=== PATIENT | male | born 1980 | race Caucasian/White ===

== ENCOUNTER 2016-03-29 10:23 | Inpatient (IN) | payer MEDICAID ==
[~2016-03-29] VITALS: Ht 185.4 cm; Wt 79.0 kg
[~2016-03-29 10:23] MED LIST: /IPRAINH INH; ADV500INH INH; ALBU17IN INH; BENA25TA4 PO; BUSP10TA PO; COLA50CA3 PO; LEVO750T PO; MUCI600T34 PO; OMEP40CA2 PO; PEPC10TA PO; PRED10TA2 PO; TRAZ100T4 PO; VENTAER IN; XANA0.5T PO; ZOLO100T PO; ZOLO50TA PO
[2016-03-29 11:50] LABS: BASO % 0.1 % (0.0-1.0); EOS % 0.4 % (0.0-3.0); LARGE UNSTAINED CELL # 0.2 K/mm3 (0.0-0.4); LARGE UNSTAINED CELL % 1.1 % (0.0-4.0); LYMPH # 1.2 K/mm3 (1.5-4.5); LYMPH % 8.7 % (24.0-44.0); MEAN CORPUSCULAR HEMOGLOBIN 30.1 pg (27.0-33.0); MEAN CORPUSCULAR HGB CONC 34.4 g/dl (32.0-36.5); MEAN CORPUSCULAR VOLUME 87.5 fl (80.0-96.0); MONO # 0.6 K/mm3 (0.0-0.8); MONO % 4.1 % (0.0-5.0); NEUTROPHILS % 85.7 % (36.0-66.0); PLATELET COUNT, AUTOMATED 279 k/mm3 (150-450); RED CELL DISTRIBUTION WIDTH 12.8 % (11.5-14.5)
[2016-03-29 12:01] LABS: ANION GAP 8 MEQ/L (8-16); BLOOD UREA NITROGEN 15 MG/DL (7-18); CARBON DIOXIDE LEVEL 27 MEQ/L (21-32); CHLORIDE LEVEL 106 MEQ/L (98-107); CREATININE FOR GFR 1.31 MG/DL (0.70-1.30); GLOMERULAR FILTRATION RATE > 60.0 (>60); GLUCOSE, FASTING 110 MG/DL (70-105); SODIUM LEVEL 141 MEQ/L (136-145)
[2016-03-29] MEDS ORDERED: MAGNESIUM SULFATE 1 GM/100 ML D5W BAG (10MG/ML) (J3475) As Ordered ONE (12:15)
[2016-03-29] MEDS ORDERED: ISOVUE-370 76% 100ML VIAL (Q9967) As Ordered ONE (12:15)
[2016-03-29] MEDS ORDERED: IPRATROPIUM 0.5MG/ALBUTEROL 2.5MG INH SOL UD 3ML (DUONEB)(J7620) As Ordered ONE ×2 (12:41→12:57)
--- NOTE | 2016-03-29 13:11 | REP ---
CT ANGIO CHEST: HISTORY: Shortness of breath. CONTRAST: Isovue 370, 75 mL. There are no filling defects in the main , right and left pulmonary arteries or their branches. The lungs are clear. There is no pleural effusion. There is no hilar or mediastinal mass. The heart is normal in size. IMPRESSION: There is no pulmonary embolism. Signed by Michael Doshi MD 03/29/2016 01:14 P
[2016-03-29] MEDS ORDERED: DEXA4TA PO (14:33)
[2016-03-29] MEDS ORDERED: ALBU83IN INH (14:33)
[2016-03-29] MEDS ORDERED: ROBI30SU PO (14:33)
--- NOTE | 2016-03-29 15:19 | HPEPDOC ---
Medical History and Physical Date of Admission 03/29/16 History and Physical ATTENDING: Dr. Salmon PCP: NONE CC: SOB HPI: 35 yoM with a past medical history significant for asthma who states his breathing has been worsening for the past 6 weeks. He states he was not taking any medications because he did not have a primary care provider and he did not have insurance. He was seen at urgent care approximately 4 weeks ago and was treated with a one-week course of prednisone and amoxicillin. His symptoms subsequently did not improve. He was seen yesterday at [facility] and treated with oral dexamethasone. Today he was persistently short of breath therefore came to the emergency department for further evaluation. He states over the past 4-6 weeks he has been using albuterol 6-7 times per day for wheezing, coughing, shortness of breath. Today his chest feels tight. Cough is nonproductive. He notices wheezing. He has not had any fevers or chills. No sputum production. Denies any weakness, fatigue, SCOTT, CP, palpitations, abdominal pain, N/V/D or changes in bowel or bladder habits. Upon presentation to the hospital the patient was found to have asthma exacerbation, thus the hospitalist team was consulted. PMHx: Asthma Depression Anxiety Tobacco use PSHX: Denies SOCHX: Resides in: [facility] Marital Status: Single Kids: None Employment: [employer] Tobacco use: One half pack per day for 9 years, states quit 2 weeks ago related to his breathing ETOH: States one time per month approximately 30 shots. Illicit Drugs: Denies Recent travel: Denies Advanced directives: Denies FAMHX: Mother: Alive, COPD Father: , 1984, self-inflicted GSW. Siblings: One brother, one sister Alive, well Children: None Unexpected deaths due to medical reasons: None. ROS: As noted in HPI, otherwise 11pt ROS of systems reviewed and unremarkable. PE: GEN: 35yoM, appears stated age. Well-nourished, well developed. No acute distress. Alert and oriented x 3. Pleasant, interactive. HEENT: Normocephalic, atraumatic. Pupils are equal, round, and reactive to light. Extraocular movements are intact. No nystagmus appreciated. Sclera are nonicteric. Conjunctiva without injection. Nose midline. Nasal turbinates without bogginess. EACs both patent BL. TMs both visualized and gonzales with good cone of light, no bulging or erythema. No facial asymmetry. Moist mucous membranes. Dentition fair. Pharynx pink and moist, no cobblestoning. Neck supple , trachea midline. No lymphadenopathy or thyromegaly appreciated. CHEST: Regular rate and rhythm, +S1, +S2 LUNGS: Decreased breath sounds noted bilaterally with diffuse inspiratory/ expiratory wheezes, no rales, or rhonchi. Patient is speaking in full sentences. No accessory muscle use. ABD: Round, soft, non-tender, non-distended. +Bowel sounds throughout. No rebound or guarding. No costovertebral angle tenderness. EXT: Pulses 2+ bilaterally dorsalis pedis and radial. No lower extremity edema appreciated. SKIN: Vaiva Vo, dry, warm. Capillary refill <2sec. No rashes. NEURO: Alert and oriented x 3. Cranial nerves III-XII are intact. No focal deficits appreciated. CTA: There are no filling defects in the main , right and left pulmonary arteries or their branches. The lungs are clear. There is no pleural effusion. There is no hilar or mediastinal mass. The heart is normal in size. There is no pulmonary embolism. EKG: Sinus rhythm, nonspecific ST-T abnormality, 78 bpm A&P: 35 yoM with a past medical history significant for asthma who states his breathing has been worsening for the past 6 weeks. He was seen at urgent care approximately 4 weeks ago and was treated with a one-week course of prednisone and amoxicillin. His symptoms subsequently did not improve. He was seen yesterday at [facility] and treated with oral dexamethasone. Today he was persistently short of breath therefore came to the emergency department for further evaluation. The patient will be admitted to [facility] for at least [address] Salmon's service. Patient is discussed with Dr. Mcneil. Asthma. Solu-Medrol 60 mg IV every 6 hours. DuoNeb every 4 hours and every 2 hours as needed. Supplemental oxygen as needed. History of depression/anxiety. Patient does not take any medications at this time. History of tobacco use. Patient states he quit 2 weeks ago. DVT prophylaxis. The patient is a full code Vital Signs 156/87 82 20 98.3 96 2 L nasal cannula Laboratory Data Labs 24H Laboratory Tests 2 03/29/16 11:32: Anion Gap 8, White Blood Count 14.0H, Red Blood Count 5.35, Hemoglobin 16.1, Hematocrit 46.9, Mean Corpuscular Volume 87.5, Mean Corpuscular Hemoglobin 30.1 , Mean Corpuscular Hemoglobin Concent 34.4, Red Cell Distribution Width 12.8, Platelet Count 279, Neutrophils (%) (Auto) 85.7H, Lymphocytes (%) (Auto) 8.7L, Monocytes (%) (Auto) 4.1, Eosinophils (%) (Auto) 0.4, Basophils (%) (Auto) 0.1, Neutrophils # (Auto) 12.0H, Lymphocytes # (Auto) 1.2L, Monocytes # (Auto) 0.6, Eosinophils # (Auto) 0.0, Basophils # (Auto) 0.0, Blood Urea Nitrogen 15, Creatinine 1.31H, Sodium Level 141, Potassium Level 4.0, Chloride Level 106, Carbon Dioxide Level 27, Calcium Level 9.0, Glomerular Filtration Rate > 60.0, Large Unclassified Cells # 0.2, Large Unclassified Cells % 1.1 CBC/BMP Laboratory Tests 03/29/16 11:32 Calcium Level 9.0, Red Blood Count 5.35, Mean Corpuscular Volume 87.5, Mean Corpuscular Hemoglobin 30.1, Mean Corpuscular Hemoglobin Concent 34.4, Red Cell Distribution Width 12.8, Neutrophils (%) (Auto) 85.7 H, Lymphocytes (%) (Auto) 8.7 L, Monocytes (%) (Auto) 4.1, Eosinophils (%) (Auto) 0.4, Basophils (%) (Auto ) 0.1, Neutrophils # (Auto) 12.0 H, Lymphocytes # (Auto) 1.2 L, Monocytes # ( Auto) 0.6, Eosinophils # (Auto) 0.0, Basophils # (Auto) 0.0 Home Medications Scheduled Dexamethasone (Dexamethasone) 4 Mg Tab 4 MG PO DAILY TOOK FOR 2 DOSES, LAST DOSE WAS 03/29/16 Scheduled PRN (Robitussin 12 Hour Cough) 30 Mg/5 Ml Echo 30 MG PO PRN PRN PRN COUGH Albuterol Sulfate (Ventolin Hfa) 200 Puff/8 Gm Aers 2 PUFF INH Q4HP PRN PRN SOB/ WHEEZING Albuterol Sulfate (Albuterol Sulfate) 2.5 Mg/3 Ml Nebu 2.5 MG INH QID PRN PRN SHORTNESS OF BREATH Allergies Coded Allergies: No Known Drug Allergy (Verified Allergy, 11/29/12) Cary Zheng Mar 29, 2016 15:19
--- NOTE | 2016-03-29 16:19 | EDDOCDS ---
Nurse's Notes [facility] Name: Sung Lilly Age: 35 yrs Sex: Male : 1980 Arrival Date: 03/29/2016 Time: 10:23 Bed 10 Private MD: Diagnosis: Asthma Presentation: 03/29 10:34 Presenting complaint: Patient states: He has had difficulty breathing for a month. ja5 Feels like he needs to gasp for air when breathing. Seen yesterday at [facility] for same. Adult Sepsis Screening: The patient does not have new or worsening altered mentation. Patient has a respiratory rate of greater than or equal to 22 (1 point). Systolic blood pressure is greater than 100. Patient has a qSOFA score of 1- Negative Sepsis Screen. Suicide/Homicide risk assessment- the patient denies having any suicidal and/or homicidal ideations and does not present with any other emotional, behavioral or mental health complaints. Status: Patient is not a teleservices representative or dependent. Transition of care: patient was not received from another setting of care. 10:34 Acuity: MAGDIEL Level 3 ja5 10:34 Method Of Arrival: Walkin/Carried/Asstd ja5 Triage Assessment: 10:42 General: Appears in no apparent distress, Behavior is appropriate for age, cooperative. ja5 Pain: Denies pain. Pt Declines HIV testing. The patient is triaged at the bedside. See Assessment in Nurses Notes section of ED record. Respiratory: Onset: The symptoms/episode began/occurred One month ago.. Historical: - Allergies: no known allergies; - Home Meds: 1. albuterol sulfate 90 mcg/actuation Inhl HFAA 2 puffs every 4 hours as needed (Last dose: 03/29/2016 09:00) 2. albuterol sulfate 2.5 mg /3 mL (0.083 %) Nebulizer nebu 3 mL 4 times per day as needed (Last dose: 03/29/2016 08:00) 3. dexamethasone 4 mg Oral tab 1 tab once daily prescribed one dose (Last dose: 03/29/2016 09:00) - PMHx: Asthma; Depression; Anxiety; - PSHx: none; - Social history: Smoking status: Patient states former smoker of tobacco. No barriers to communication noted. - Family history: Not pertinent. - : The pt / caregiver states he / she is not on anticoagulants. Home medication list is obtained from the patient. - Exposure Risk Screening:: None identified. Screenin:47 Screening information is obtained from the patient. Fall risk: No risks identified. ja5 Assistance ADL's: requires no assistance with activities of daily living. Abuse/DV Screen: The patient / caregiver reports he/she is: not in a situation that causes fear, pain or injury. Nutritional screening: On no prescribed diet. Advance Directives: Currently, there is no health care proxy. There is no active DNR order. There is no living will. There is no Power of Industrial Maintenance Tech. home support is adequate. Assessment: 10:45 General: Appears in no apparent distress, Behavior is appropriate for age, cooperative. ja5 Pain: Denies pain. Neurological: Level of Consciousness is awake, alert, Oriented to person, place, time. Cardiovascular: Capillary refill < 3 seconds Heart tones S1 S2. Respiratory: Airway is patent Respiratory effort is even, unlabored, Breath sounds with wheezes inspiratory expiratory bilaterally. Derm: Skin is intact, Skin is Skin is pink, warm & dry. 12:35 General: Patient just returned from CT, tolerated well, no needs at this time, patient ja5 still experiencing wheezing but is in no distress at this time. He states that he is much better than he was prior to his arrival. 13:33 General: Appears in no apparent distress, comfortable, Behavior is appropriate for age, ms18 cooperative, Magnesium infusion done at this time. PT in no acute distress. Family at bedside. . Respiratory: Airway is patent Respiratory effort is even, unlabored. Derm: Skin is pink, warm & dry. 14:17 General: Hospitalist in to assess/admit patient.. dwg 14:28 General: Patient resting in stretcher, no respiratory distress noted at this time, call ja5 light within reach, no needs at this time. 14:50 General: Appears in no apparent distress, Behavior is cooperative. Pain: Denies pain. dwg Neurological: Level of Consciousness is awake, alert, Oriented to person, place, time. Respiratory: Airway is patent Respiratory effort is even, unlabored, Respiratory pattern is regular, symmetrical. 14:53 General: Continues with inspiratory and expiratory wheezes bilaterally though states he dwg feels he is breathing easier since neb treatments.. Respiratory: Breath sounds with wheezes inspiratory expiratory bilaterally. 15:50 General: Appears in no apparent distress, comfortable, Behavior is appropriate for age, jmb cooperative. General: Patient sitting on stretcher texting on cell phone. NO voiced complaints at this time. . Neurological: Level of Consciousness is awake, alert, obeys commands, Oriented to person, place, time. Respiratory: Airway is patent Respiratory effort is even, unlabored, Respiratory pattern is regular, symmetrical. 16:08 General: Patient ready for transfer to [address] [place] [address].. b Vital Signs: 10:25 BP 147 / 95; Pulse 103; Resp 26; Temp 98.3(O); Pulse Ox 90% on R/A; Weight 72.57 kg; elp Height 6 ft. 1 in. (185.42 cm); 10:31 BP 141 / 94 (auto/); ja5 10:32 Pulse 104 MON; Pulse Ox 90% ; ja5 10:44 Pulse Ox 94% on 2 lpm NC; ja5 11:01 BP 134 / 83 (auto/); ja5 11:02 Pulse 86 MON; Pulse Ox 94% ; ja5 12:01 BP 146 / 76 (auto/); ja5 12:01 Pulse 84 MON; Pulse Ox 94% ; ja5 12:30 Pulse 82 MON; Pulse Ox 96% ; ja5 12:31 BP 156 / 87 (auto/); ja5 14:31 BP 156 / 83 (auto/); jmb 14:31 Pulse 100 MON; Pulse Ox 92% ; jmb 14:47 BP 157 / 85 (auto/); jmb 14:48 Pulse 100 MON; Pulse Ox 93% ; jmb 14:49 BP 157 / 84; Pulse 96; Resp 20; Pulse Ox 94% on 2 lpm NC; dwg 15:01 BP 165 / 88 (auto/); jmb 15:02 Pulse 96 MON; Pulse Ox 92% ; jmb 15:31 BP 151 / 78 (auto/); jmb 15:31 Pulse 98 MON; Pulse Ox 92% ; jmb 16:10 BP 172 / 101 LA Supine (auto/lg); Pulse 86; Resp 24; Temp 98.5; Pulse Ox 93% on R/A; bnb Pain 0/10; 16:16 BP 136 / 88 (man/lg); jmb 10:25 Body Mass Index 21.11 (72.57 kg, 185.42 cm) elp Vitals: 10:25 Log In Time: March 29, 2016 at 10:23. RN notified that patient meets Red Flag elp criteria. ED Course: 10:24 Patient visited by Johanna Valencia PCA. elp 10:24 Patient moved to Waiting elp 10:25 Hill Cummings is Private Physician. elp 10:27 Patient visited by Johanna Valencia PCA. elp 10:27 Kelli Ryan RN is Primary Nurse. elp 10:27 Mahsa Cortez RN is Primary Nurse. elp 10:27 Patient moved to 10 elp 10:34 Tari Frankel MD is Attending Physician. fg 10:34 Patient visited by Tari Frankel MD. fg 10:37 Triage Initiated ja5 10:45 O2 via nasal cannula \T\ 2L/min. ja5 11:28 [facility] [place] was scanned into [employer] and attached to record. mm15 11:35 Patient visited by Connie Torres PCA. rs6 11:35 EKG done. (by ED staff). Reviewed by Tari Frankel MD. rs6 11:37 Basic Metabolic Profile Sent. ja5 11:37 CBC with Diff Sent. ja5 11:37 Inserted saline lock: 20 gauge in left antecubital area. ja5 11:38 Patient visited by Concepcion Chavarria RN. ja5 12:36 Patient visited by Concepcion Chavarria,CHRISTOPH. ja5 13:12 Primary Nurse role handed off by Mahsa Cortez, CHRISTOPH jc4 13:33 Patient visited by Jess Ryan RN. ms18 13:34 CT Chest Angio R/O PE Returned. EDMS 13:55 Mariela Mcneil is Hospitalizing Provider. fg 14:17 Patient visited by José Miguel Victoria, CHRISTOPH. dwg 14:26 Patient visited by Concepcion Chavarria RN. ja5 14:27 Patient visited by Concepcion Chavarria RN. ja5 14:50 Patient visited by José Miguel Victoria RN. dwg 15:51 Patient visited by Sridhar Marshall RN. jmb 16:08 The patient / caregiver is instructed regarding the plan of care and ED course. jmb 16:08 No procedures done that require assistance. jmb 16:11 Patient visited by Concepcion Marshall PCA. bnb Administered Medications: 12:30 Drug: Magnesium Sulfate 1 grams [magnesium sulfate 1 gram/100 mL in dextrose 5 % ja5 intravenous piggyback] {Co-Signature: jc4 (Mahsa Cortez RN).} Route: IVPB; Infused Over: 1 hrs; Site: left antecubital; 13:33 Follow up: IV Status: Completed infusion ms18 12:46 Drug: Albuterol-Ipratropium 3 ml [ipratropium-albuterol 0.5 mg-3 mg(2.5 mg base)/3 mL cs15 nebulization soln (3 mL)] Route: Inhalation; 13:05 Drug: Albuterol-Ipratropium 3 ml [ipratropium-albuterol 0.5 mg-3 mg(2.5 mg base)/3 mL cs15 nebulization soln (3 mL)] Route: Inhalation; RT: 12:46 Initial Med Neb Given as ordered. Respiratory: Respiratory effort is labored, cs15 Respiratory pattern is regular Breath sounds are coarse Breath sounds with wheezes bilaterally. at expiration Reports took albuterol this morning but didn't really help. He stated that when he gets DUONEB it really helps. 13:14 Subsequent Med Neb Given as ordered. Respiratory: Breath sounds with wheezes cs15 bilaterally. Order Results: Lab Order: Basic Metabolic Profile; SPEC'M 03/29/16 11:32 Test: GLUCOSE, FASTING; Value: 110; Range: 70-105; Abnormal: Above high normal; Units: MG/DL; Status: F Test: BLOOD UREA NITROGEN; Value: 15; Range: 7-18; Units: MG/DL; Status: F Test: CREATININE FOR GFR; Value: 1.31; Range: 0.70-1.30; Abnormal: Above high normal; Units: MG/DL; Status: F Test: GLOMERULAR FILTRATION RATE; Value: > 60.0; Range: >60; Status: F Test: SODIUM LEVEL; Value: 141; Range: 136-145; Units: MEQ/L; Status: F Test: POTASSIUM SERUM; Value: 4.0; Range: 3.5-5.1; Units: MEQ/L; Status: F Test: CHLORIDE LEVEL; Value: 106; Range: 98-107; Units: MEQ/L; Status: F Test: CARBON DIOXIDE LEVEL; Value: 27; Range: 21-32; Units: MEQ/L; Status: F Test: ANION GAP; Value: 8; Range: 8-16; Units: MEQ/L; Status: F Test: CALCIUM LEVEL; Value: 9.0; Range: 8.5-10.1; Units: MG/DL; Status: F Test Note: ; Units are mL/min/1.73 m2 Chronic Kidney Disease Staging per NKF: Stage I & II GFR >=60 Normal to Mildly Decreased Stage III GFR 30-59 Moderately Decreased Stage IV GFR 15-29 Severely Decreased Stage V GFR <15 Very Little GFR Left ESRD GFR <15 on SHOES HAND SEWER Lab Order: CBC with Diff; SPEC'M 03/29/16 11:32 Test: WHITE BLOOD COUNT; Value: 14.0; Range: 4.0-10.0; Abnormal: Above high normal; Units: K/mm3; Status: F Test: RED BLOOD COUNT; Value: 5.35; Range: 4.30-6.10; Units: M/mm3; Status: F Test: HEMOGLOBIN; Value: 16.1; Range: 14.0-18.0; Units: g/dl; Status: F Test: HEMATOCRIT; Value: 46.9; Range: 42.0-52.0; Units: %; Status: F Test: MEAN CORPUSCULAR VOLUME; Value: 87.5; Range: 80.0-96.0; Units: fl; Status: F Test: MEAN CORPUSCULAR HEMOGLOBIN; Value: 30.1; Range: 27.0-33.0; Units: pg; Status: F Test: MEAN CORPUSCULAR HGB CONC; Value: 34.4; Range: 32.0-36.5; Units: g/dl; Status: F Test: RED CELL DISTRIBUTION WIDTH; Value: 12.8; Range: 11.5-14.5; Units: %; Status: F Test: PLATELET COUNT, AUTOMATED; Value: 279; Range: 150-450; Units: k/mm3; Status: F Test: NEUTROPHILS %; Value: 85.7; Range: 36.0-66.0; Abnormal: Above high normal; Units: %; Status: F Test: LYMPH %; Value: 8.7; Range: 24.0-44.0; Abnormal: Below low normal; Units: %; Status: F Test: MONO %; Value: 4.1; Range: 0.0-5.0; Units: %; Status: F Test: EOS %; Value: 0.4; Range: 0.0-3.0; Units: %; Status: F Test: BASO %; Value: 0.1; Range: 0.0-1.0; Units: %; Status: F Test: LARGE UNSTAINED CELL %; Value: 1.1; Range: 0.0-4.0; Units: %; Status: F Test: NEUTROPHILS #; Value: 12.0; Range: 1.8-7.7; Abnormal: Above high normal; Units: K/mm3; Status: F Test: LYMPH #; Value: 1.2; Range: 1.5-4.5; Abnormal: Below low normal; Units: K/mm3; Status: F Test: MONO #; Value: 0.6; Range: 0.0-0.8; Units: K/mm3; Status: F Test: EOS #; Value: 0.0; Range: 0.0-0.50; Units: K/mm3; Status: F Test: BASO #; Value: 0.0; Range: 0.0-0.2; Units: K/mm3; Status: F Test: LARGE UNSTAINED CELL #; Value: 0.2; Range: 0.0-0.4; Units: K/mm3; Status: F Radiology Order: CT Chest Angio R/O PE Test: CT Chest Angio R/O PE REASON FOR EXAMINATION: Shortness of Breath; CT ANGIO CHEST:; ; HISTORY: Shortness of breath.; ; CONTRAST: Isovue 370, 75 mL.; ; There are no filling defects in the main , right and left pulmonary arteries; or their branches. The lungs are clear. There is no pleural effusion. There is; no hilar or mediastinal mass. The heart is normal in size.; ; IMPRESSION:; ; There is no pulmonary embolism.; ; ; Signed by; Michael Doshi MD 03/29/2016 01:14 P; Outcome: 13:55 Decision to Hospitalize by Provider. fg 16:08 Discharge Assessment: Patient awake, alert and oriented x 3. No cognitive and/or jmb functional deficits noted. Patient verbalized understanding of disposition instructions. Patient awake and alert. obeys commands, Oriented to person, place and time. Patient verbalized understanding of disposition instructions. Patient has no functional deficits. patient administered narcotics - no. The following High Risk Discharge criteria are identified: None. Admitted to Med/Surg accompanied by tech, via stretcher, with chart. Condition: stable Condition: improved. No special radiology studies were completed. Property :Personal belongings accompany Pt. 16:18 Patient left the ED. jmb Signatures: Dispatcher [employer] EDMS José Miguel Victoria, RN Mahsa Griffin RN RN jc4 Francisco Lujan mm15 Johanna Valencia, QUALITY SYSTEM MANAGER QUALITY SYSTEM MANAGER Sridhar Tovar RN RN jmb Smith, Mallory,RN RN [id number] Connie Torres, QUALITY SYSTEM MANAGER QUALITY SYSTEM MANAGER rs6 Tari Frankel MD MD fg Shelton, Caleb,RT RT cs15 Concepcion Chavarria RN RN ja5 Becker, Brittney, QUALITY SYSTEM MANAGER QUALITY SYSTEM MANAGER bnb Mahsa Cortez RN jc4 REZA
--- NOTE | 2016-03-29 16:19 | EDDOCDS ---
Physician Documentation [facility] Name: Sung Lilly Age: 35 yrs Sex: Male : 1980 Arrival Date: 03/29/2016 Time: 10:23 Bed 10 Private MD: Disposition: 03/29/16 13:55 Hospitalization ordered by Mariela Mcneil for Inpatient Admission. Preliminary diagnosis is Asthma. - Bed requested for 4 [place]. - Status is Inpatient Admission. jmb - Condition is Stable. - Problem is chronic. - Symptoms are unchanged. Historical: - Allergies: no known allergies; - Home Meds: 1. albuterol sulfate 90 mcg/actuation Inhl HFAA 2 puffs every 4 hours as needed (Last dose: 03/29/2016 09:00) 2. albuterol sulfate 2.5 mg /3 mL (0.083 %) Nebulizer nebu 3 mL 4 times per day as needed (Last dose: 03/29/2016 08:00) 3. dexamethasone 4 mg Oral tab 1 tab once daily prescribed one dose (Last dose: 03/29/2016 09:00) - PMHx: Asthma; Depression; Anxiety; - PSHx: none; - Social history: Smoking status: Patient states former smoker of tobacco. No barriers to communication noted. - Family history: Not pertinent. - : The pt / caregiver states he / she is not on anticoagulants. Home medication list is obtained from the patient. - Exposure Risk Screening:: None identified. Vital Signs: 03/29 10:25 BP 147 / 95; Pulse 103; Resp 26; Temp 98.3(O); Pulse Ox 90% on R/A; Weight 72.57 kg / elp 159.99 lbs; Height 6 ft. 1 in. (185.42 cm); 10:31 BP 141 / 94 (auto/); ja5 10:32 Pulse 104 MON; Pulse Ox 90% ; ja5 10:44 Pulse Ox 94% on 2 lpm NC; ja5 11:01 BP 134 / 83 (auto/); ja5 11:02 Pulse 86 MON; Pulse Ox 94% ; ja5 12:01 BP 146 / 76 (auto/); ja5 12:01 Pulse 84 MON; Pulse Ox 94% ; ja5 12:30 Pulse 82 MON; Pulse Ox 96% ; ja5 12:31 BP 156 / 87 (auto/); ja5 14:31 BP 156 / 83 (auto/); jmb 14:31 Pulse 100 MON; Pulse Ox 92% ; jmb 14:47 BP 157 / 85 (auto/); jmb 14:48 Pulse 100 MON; Pulse Ox 93% ; jmb 14:49 BP 157 / 84; Pulse 96; Resp 20; Pulse Ox 94% on 2 lpm NC; dwg 15:01 BP 165 / 88 (auto/); jmb 15:02 Pulse 96 MON; Pulse Ox 92% ; jmb 15:31 BP 151 / 78 (auto/); jmb 15:31 Pulse 98 MON; Pulse Ox 92% ; jmb 16:10 BP 172 / 101 LA Supine (auto/lg); Pulse 86; Resp 24; Temp 98.5; Pulse Ox 93% on R/A; bnb Pain 0/10; 16:16 BP 136 / 88 (man/lg); jmb 10:25 Body Mass Index 21.11 (72.57 kg, 185.42 cm) elp MDM: 11:22 Magnesium Sulfate 1 grams IVPB once over 1 hrs; administer over at least 1 hour ordered.fg 11:22 IV Saline Lock ordered. fg 11:23 Basic Metabolic Profile Ordered. EDMS 11:23 CBC with Diff Ordered. EDMS 11:23 CT Chest Angio R/O PE Ordered. EDMS 11:23 ECG WITH READING ER PHYS+CARDIAG ordered. EDMS 11:27 Financial registration complete. mm15 11:28 [facility] [place] Agreement was scanned into [employer] and attached to record. mm15 12:40 Albuterol-Ipratropium 3 ml Inhalation once ordered. fg 12:58 Albuterol-Ipratropium 3 ml Inhalation once ordered. fg 13:45 REGULAR+DIET ordered. EDMS 15:08 DRUG EVAL TOXICOLOGY ED ONLY Ordered. EDMS 15:10 REGULAR DIET ordered. EDMS 15:37 Admission / Observation Status ordered. EDMS 15:43 RESPIRATORY PANEL Ordered. EDMS Administered Medications: 12:30 Drug: Magnesium Sulfate 1 grams [magnesium sulfate 1 gram/100 mL in dextrose 5 % ja5 intravenous piggyback] {Co-Signature: jc4 (Mahsa Cortez RN).} Route: IVPB; Infused Over: 1 hrs; Site: left antecubital; 13:33 Follow up: IV Status: Completed infusion ms18 12:46 Drug: Albuterol-Ipratropium 3 ml [ipratropium-albuterol 0.5 mg-3 mg(2.5 mg base)/3 mL cs15 nebulization soln (3 mL)] Route: Inhalation; 13:05 Drug: Albuterol-Ipratropium 3 ml [ipratropium-albuterol 0.5 mg-3 mg(2.5 mg base)/3 mL cs15 nebulization soln (3 mL)] Route: Inhalation; Signatures: Dispatcher [employer] [facility] Francisco Lujan mm15 Sridhar MarshallRN Cole Gastelum RN Tari Cortez mts, MD MD fg Anderson, Jessica, RN RN ja5 Smith, Mallory RN ms18 Ismael Pantoja RT cs15 Mahsa Cortez RN jc4 The chart was reviewed and I authenticate all verbal orders and agree with the evaluation and treatment provided.Attachments: 11:28 [facility] Payment Agreement mm15 MTDD
[2016-03-29 16:22] VITALS: BP 142/81
[2016-03-29] MEDS: IPRATROPIUM 0.5MG/ALBUTEROL 2.5MG INH SOL UD 3ML (DUONEB)(J7620) NEB PRN ×2 (16:42→21:35)
[2016-03-29] MEDS: methylPREDNISolone INJ 125 MG/2 ML VIAL (J2930) IV SCH ×2 (17:18→23:51)
[2016-03-29] MEDS: ENOXAPARIN 40 MG/0.4 ML SYRINGE (J1650) SC SCH (17:18)
[2016-03-29] MEDS: IPRATROPIUM 0.5MG/ALBUTEROL 2.5MG INH SOL UD 3ML (DUONEB)(J7620) NEB SCH (19:35)
[2016-03-29 22:00] VITALS: BP 137/69
[2016-03-30] MEDS: IPRATROPIUM 0.5MG/ALBUTEROL 2.5MG INH SOL UD 3ML (DUONEB)(J7620) NEB SCH ×5 (00:25→23:38)
[2016-03-30 02:05] VITALS: O2SAT 94
[2016-03-30] MEDS: IPRATROPIUM 0.5MG/ALBUTEROL 2.5MG INH SOL UD 3ML (DUONEB)(J7620) NEB PRN ×2 (02:09→11:38)
[2016-03-30] MEDS ORDERED: BENZONATATE 100 MG CAP PO ONE (02:45)
[2016-03-30] MEDS: methylPREDNISolone INJ 125 MG/2 ML VIAL (J2930) IV SCH ×4 (05:29→23:25)
[2016-03-30 06:00] VITALS: BP 138/64
[2016-03-30 06:12] LABS: BASO # 0.1 K/mm3 (0.0-0.2); BASO % 0.6 % (0.0-1.0); EOS % 0.1 % (0.0-3.0); LARGE UNSTAINED CELL # 0.1 K/mm3 (0.0-0.4); LARGE UNSTAINED CELL % 0.5 % (0.0-4.0); LYMPH % 5.4 % (24.0-44.0); MEAN CORPUSCULAR HEMOGLOBIN 29.8 pg (27.0-33.0); MEAN CORPUSCULAR HGB CONC 32.5 g/dl (32.0-36.5); MEAN CORPUSCULAR VOLUME 91.7 fl (80.0-96.0); MONO # 0.4 K/mm3 (0.0-0.8); MONO % 2.5 % (0.0-5.0); NEUTROPHILS # 15.4 K/mm3 (1.8-7.7); NEUTROPHILS % 90.9 % (36.0-66.0); PLATELET COUNT, AUTOMATED 252 k/mm3 (150-450); RED CELL DISTRIBUTION WIDTH 13.8 % (11.5-14.5)
[2016-03-30 06:26] LABS: ALBUMIN 3.7 GM/DL (3.2-5.2); ALBUMIN/GLOBULIN RATIO 1.09 (1.00-1.93); ALKALINE PHOSPHATASE 42 U/L (45-117); ALT/SGPT 59 U/L (12-78); ANION GAP 10 MEQ/L (8-16); AST/SGOT 13 U/L (15-37); BILIRUBIN,TOTAL 0.2 MG/DL (0.2-1.0); BLOOD UREA NITROGEN 13 MG/DL (7-18); CALCIUM LEVEL 8.8 MG/DL (8.5-10.1); CARBON DIOXIDE LEVEL 23 MEQ/L (21-32); CHLORIDE LEVEL 109 MEQ/L (98-107); CREATININE FOR GFR 1.25 MG/DL (0.70-1.30); GLOMERULAR FILTRATION RATE > 60.0 (>60); GLUCOSE, FASTING 151 MG/DL (70-105); POTASSIUM SERUM 4.2 MEQ/L (3.5-5.1); SODIUM LEVEL 142 MEQ/L (136-145); TOTAL PROTEIN 7.1 GM/DL (6.4-8.2)
--- NOTE | 2016-03-30 06:46 | ECGEPIP ---
Stationary ECG Study [facility] - ED Test Date: 2016-03-29 Pat Name: DARIN BELLE Department: Room: - Gender: M Take Away Attendant: : 1980 Requested By: ANDREWS Carter Order Number: [id number] Reading MD: Radha Membreno Measurements Intervals [place] Rate: 78 P: 44 AK: 133 QRS: 47 QRSD: 89 T: 17 QT: 343 QTc: 391 Interpretive Statements SINUS RHYTHM NONSPECIFIC T-WAVE ABNORMALITY NSTTW ABNORMALITY INCREASED RATE 04/17/14 Electronically Signed On 03-30-2016 6:45:38 EST by Radha Membreno
[2016-03-30] MEDS: BENZONATATE 100 MG CAP PO SCH ×2 (08:14→20:26)
[2016-03-30] MEDS: ENOXAPARIN 40 MG/0.4 ML SYRINGE (J1650) SC SCH (08:14)
[2016-03-30] MEDS: MONTELUKAST 10 MG TAB PO SCH (10:53)
[2016-03-30] MEDS: SYMBICORT 80/4.5MCG INHALER 6GM INH SCH ×2 (11:33→20:18)
--- NOTE | 2016-03-30 12:15 | IPN ---
DATE OF SERVICE: 03/30/2016 Patient seen and examined at the bedside. Chart has been reviewed. This morning, patient still complains of dyspnea on exertion from bed to the bathroom. Still requiring supplemental oxygen, currently saturating at 91% on room air, 95 % to 99% on 2 liters nasal cannula. Patient has no conversational dyspnea, able to speak in full sentences. No cyanosis. VITAL SIGNS: Temperature 98.4, pulse 92, respiratory rate 24, blood pressure 138/64, 95% on 2 liters nasal cannula. GENERAL: Awake, alert, oriented times three. No cyanosis. No use of respiratory accessory muscles. Patient is able to speak in full sentences. There is no conversational dyspnea. No jugular venous distention (JVD), thyromegaly or pharyngeal erythema. LUNGS: Diminished with faint expiratory wheezing bilaterally. HEART: S1, S2, with tachycardia. ABDOMEN: Soft, nontender, nondistended. Positive bowel sounds. EXTREMITIES: No clubbing, cyanosis or pitting edema. LABORATORY DATA: 03/30/2016: Metabolic panel has been reviewed. ASSESSMENT AND PLAN: This is a 35-year-old male with history of asthma, depression, anxiety, tobacco abuse, had been given a one week course of prednisone, amoxicillin by urgent care about four weeks ago, with no significant improvement. Patient does not have a primary care provider or insurance, presented with worsening shortness of breath despite using his nebulizers 67 times at home. Patient was admitted for asthma exacerbation. Chest x-ray is normal. Patient is afebrile with no white count on admission. Chest is clear with no signs of pulmonary embolism. CURRENT ISSUES: 1. Asthma exacerbation. Continue with intravenous (IV) Solu-Medrol, nebulizer treatment, as well as inhaled steroids with budesonide and long-acting beta agonist, montelukast, due to persistent asthma. 2. Depression. No active depressive symptoms or suicidal ideation. 3. Anxiety. Stable. 4. Tobacco use. Quit two weeks ago. 5. Deep venous thrombosis (DVT) prophylaxis. Patient is mobile. Lovenox subcutaneously daily. MTDD
[2016-03-30 13:54] VITALS: BP 134/70
[2016-03-30 22:00] VITALS: BP 143/65
[2016-03-31] MEDS: methylPREDNISolone INJ 125 MG/2 ML VIAL (J2930) IV SCH ×3 (05:20→20:26)
[2016-03-31 06:00] VITALS: BP 146/72
[2016-03-31 06:29] LABS: BASO % 0.1 % (0.0-1.0); EOS % 0.2 % (0.0-3.0); LARGE UNSTAINED CELL # 0.3 K/mm3 (0.0-0.4); LARGE UNSTAINED CELL % 1.5 % (0.0-4.0); LYMPH # 1.2 K/mm3 (1.5-4.5); LYMPH % 5.5 % (24.0-44.0); MEAN CORPUSCULAR HEMOGLOBIN 29.2 pg (27.0-33.0); MEAN CORPUSCULAR HGB CONC 32.4 g/dl (32.0-36.5); MEAN CORPUSCULAR VOLUME 90.3 fl (80.0-96.0); MONO # 1.2 K/mm3 (0.0-0.8); MONO % 5.4 % (0.0-5.0); NEUTROPHILS # 18.9 K/mm3 (1.8-7.7); NEUTROPHILS % 87.4 % (36.0-66.0); PLATELET COUNT, AUTOMATED 301 k/mm3 (150-450); RED CELL DISTRIBUTION WIDTH 12.8 % (11.5-14.5); WHITE BLOOD COUNT 21.6 K/mm3 (4.0-10.0)
[2016-03-31] MEDS ORDERED: LEVALBUTEROL 1.25 MG/0.5 ML CONCENTRATE NEB INH PRN (06:45)
[2016-03-31 06:54] LABS: ALBUMIN 3.6 GM/DL (3.2-5.2); ALBUMIN/GLOBULIN RATIO 1.09 (1.00-1.93); ALKALINE PHOSPHATASE 39 U/L (45-117); ALT/SGPT 52 U/L (12-78); ANION GAP 10 MEQ/L (8-16); AST/SGOT 11 U/L (15-37); BILIRUBIN,TOTAL 0.2 MG/DL (0.2-1.0); BLOOD UREA NITROGEN 17 MG/DL (7-18); CALCIUM LEVEL 9.1 MG/DL (8.5-10.1); CARBON DIOXIDE LEVEL 26 MEQ/L (21-32); CHLORIDE LEVEL 105 MEQ/L (98-107); CREATININE FOR GFR 1.13 MG/DL (0.70-1.30); GLOMERULAR FILTRATION RATE > 60.0 (>60); GLUCOSE, FASTING 146 MG/DL (70-105); POTASSIUM SERUM 4.2 MEQ/L (3.5-5.1); SODIUM LEVEL 141 MEQ/L (136-145); TOTAL PROTEIN 6.9 GM/DL (6.4-8.2)
[2016-03-31] MEDS: MOXIFLOXACIN 400 MG TAB PO SCH (06:54)
[2016-03-31] MEDS: LEVALBUTEROL 1.25 MG/0.5 ML CONCENTRATE NEB INH SCH ×6 (08:00→23:41)
[2016-03-31] MEDS: SYMBICORT 80/4.5MCG INHALER 6GM INH SCH ×2 (08:37→20:38)
[2016-03-31] MEDS ORDERED: INFLUENZA QUADRIVALENT PF VACCINE 0.5ML SYRINGE/VIAL (90686) IM SCH (09:00)
[2016-03-31] MEDS: ENOXAPARIN 40 MG/0.4 ML SYRINGE (J1650) SC SCH (10:02)
[2016-03-31] MEDS: BENZONATATE 100 MG CAP PO SCH ×2 (10:02→20:26)
[2016-03-31] MEDS: OMEPRAZOLE 20 MG CAP PO SCH (10:02)
[2016-03-31] MEDS: MONTELUKAST 10 MG TAB PO SCH (10:03)
[2016-03-31] MEDS ORDERED: ALPRAZolam 0.25 MG TAB PO PRN (10:30)
[2016-03-31] MEDS ORDERED: zolPIDEM TARTRATE 5 MG TAB PO PRN (10:30)
--- NOTE | 2016-03-31 11:08 | IPN ---
DATE: 03/31/2016 The patient is seen and examined at bedside. The chart has been reviewed. The patient still complains of shortness of breath with ambulation. He continues to have severe wheezing, decreased air entry and tachycardic with ambulation. Otherwise, he denies any chest pain, pressure or tightness. He has been able to sleep last evening with increased insomnia and anxiety per nursing. No complaints of chest pain, pressure or tightness this morning. Temperature 97.4, pulse 72, respiratory rate 22, blood pressure 146/72, 94% on 2 liters nasal cannula. Generally, the patient is awake, alert, and oriented times three, appears anxious at the bedside. No use of respiratory accessory muscles. Able to complete full sentences. Without conversational dyspnea. There is no cyanosis. Lungs are diminished with expiratory wheezing bilaterally. Improved air entry than yesterday. Heart: S1, S2, with sinus tachycardia. Abdomen soft, nontender, nondistended. Positive bowel sounds. Extremities: Have no pitting edema. LABORATORY DATA: CBC and metabolic panel have been reviewed. ASSESSMENT AND PLAN: This is a 35-year-old male with history of anxiety, polysubstance abuse, asthma as a child, tobacco use and quit about two weeks ago , and depression who presented to urgent care for worsening shortness of breath about four weeks ago, treated with prednisone and amoxicillin with no improvement. The patient has lost his insurance and has had no primary care physician for some time. Currently has medical insurance and is admitted for asthma exacerbation. CURRENT ISSUES: 1. Asthma exacerbation. Patient has severe persistent asthma with exacerbation. On IV Solu-Medrol and nebulizer treatments. Due to complaints of palpitations, patient's albuterol had been changed to Xopenex. He is continued on IV Solu-Medrol, inhaled steroids and inhaled long acting beta agonist, mast cell stabilizer. For comfort, supplemental oxygen as needed for saturations less than 88%. 2. Anxiety and depression. Stable. 3. Insomnia. As needed medication for sleep. 4. Tobacco abuse. Quit two weeks ago. 5. Deep vein thrombosis prophylaxis. On Lovenox. MTDD
[2016-03-31] MEDS: ACETAMINOPHEN TAB 650MG DOSE (2X325MG) PO PRN (11:42)
[2016-03-31 14:00] VITALS: BP 138/65
--- NOTE | 2016-03-31 17:19 | EDDOCDS ---
Nurse's Notes [facility] Name: Sung Lilly Age: 35 yrs Sex: Male : 1980 Arrival Date: 03/29/2016 Time: 10:23 Bed 10 Private MD: Diagnosis: Asthma Presentation: 03/29 10:34 Presenting complaint: Patient states: He has had difficulty breathing for a month. ja5 Feels like he needs to gasp for air when breathing. Seen yesterday at [facility] for same. Adult Sepsis Screening: The patient does not have new or worsening altered mentation. Patient has a respiratory rate of greater than or equal to 22 (1 point). Systolic blood pressure is greater than 100. Patient has a qSOFA score of 1- Negative Sepsis Screen. Suicide/Homicide risk assessment- the patient denies having any suicidal and/or homicidal ideations and does not present with any other emotional, behavioral or mental health complaints. Status: Patient is not a technical services representative or dependent. Transition of care: patient was not received from another setting of care. 10:34 Acuity: MAGDIEL Level 3 ja5 10:34 Method Of Arrival: Walkin/Carried/Asstd ja5 Triage Assessment: 10:42 General: Appears in no apparent distress, Behavior is appropriate for age, cooperative. ja5 Pain: Denies pain. Pt Declines HIV testing. The patient is triaged at the bedside. See Assessment in Nurses Notes section of ED record. Respiratory: Onset: The symptoms/episode began/occurred One month ago.. Historical: - Allergies: no known allergies; - Home Meds: 1. albuterol sulfate 90 mcg/actuation Inhl HFAA 2 puffs every 4 hours as needed (Last dose: 03/29/2016 09:00) 2. albuterol sulfate 2.5 mg /3 mL (0.083 %) Nebulizer nebu 3 mL 4 times per day as needed (Last dose: 03/29/2016 08:00) 3. dexamethasone 4 mg Oral tab 1 tab once daily prescribed one dose (Last dose: 03/29/2016 09:00) - PMHx: Asthma; Depression; Anxiety; - PSHx: none; - Social history: Smoking status: Patient states former smoker of tobacco. No barriers to communication noted. - Family history: Not pertinent. - : The pt / caregiver states he / she is not on anticoagulants. Home medication list is obtained from the patient. - Exposure Risk Screening:: None identified. Screenin:47 Screening information is obtained from the patient. Fall risk: No risks identified. ja5 Assistance ADL's: requires no assistance with activities of daily living. Abuse/DV Screen: The patient / caregiver reports he/she is: not in a situation that causes fear, pain or injury. Nutritional screening: On no prescribed diet. Advance Directives: Currently, there is no health care proxy. There is no active DNR order. There is no living will. There is no Power of Market Development Specialist. home support is adequate. Assessment: 10:45 General: Appears in no apparent distress, Behavior is appropriate for age, cooperative. ja5 Pain: Denies pain. Neurological: Level of Consciousness is awake, alert, Oriented to person, place, time. Cardiovascular: Capillary refill < 3 seconds Heart tones S1 S2. Respiratory: Airway is patent Respiratory effort is even, unlabored, Breath sounds with wheezes inspiratory expiratory bilaterally. Derm: Skin is intact, Skin is Skin is pink, warm & dry. 12:35 General: Patient just returned from CT, tolerated well, no needs at this time, patient ja5 still experiencing wheezing but is in no distress at this time. He states that he is much better than he was prior to his arrival. 13:33 General: Appears in no apparent distress, comfortable, Behavior is appropriate for age, ms18 cooperative, Magnesium infusion done at this time. PT in no acute distress. Family at bedside. . Respiratory: Airway is patent Respiratory effort is even, unlabored. Derm: Skin is pink, warm & dry. 14:17 General: Hospitalist in to assess/admit patient.. dwg 14:28 General: Patient resting in stretcher, no respiratory distress noted at this time, call ja5 light within reach, no needs at this time. 14:50 General: Appears in no apparent distress, Behavior is cooperative. Pain: Denies pain. dwg Neurological: Level of Consciousness is awake, alert, Oriented to person, place, time. Respiratory: Airway is patent Respiratory effort is even, unlabored, Respiratory pattern is regular, symmetrical. 14:53 General: Continues with inspiratory and expiratory wheezes bilaterally though states he dwg feels he is breathing easier since neb treatments.. Respiratory: Breath sounds with wheezes inspiratory expiratory bilaterally. 15:50 General: Appears in no apparent distress, comfortable, Behavior is appropriate for age, jmb cooperative. General: Patient sitting on stretcher texting on cell phone. NO voiced complaints at this time. . Neurological: Level of Consciousness is awake, alert, obeys commands, Oriented to person, place, time. Respiratory: Airway is patent Respiratory effort is even, unlabored, Respiratory pattern is regular, symmetrical. 16:08 General: Patient ready for transfer to [address] [place] [address].. b Vital Signs: 10:25 BP 147 / 95; Pulse 103; Resp 26; Temp 98.3(O); Pulse Ox 90% on R/A; Weight 72.57 kg; elp Height 6 ft. 1 in. (185.42 cm); 10:31 BP 141 / 94 (auto/); ja5 10:32 Pulse 104 MON; Pulse Ox 90% ; ja5 10:44 Pulse Ox 94% on 2 lpm NC; ja5 11:01 BP 134 / 83 (auto/); ja5 11:02 Pulse 86 MON; Pulse Ox 94% ; ja5 12:01 BP 146 / 76 (auto/); ja5 12:01 Pulse 84 MON; Pulse Ox 94% ; ja5 12:30 Pulse 82 MON; Pulse Ox 96% ; ja5 12:31 BP 156 / 87 (auto/); ja5 14:31 BP 156 / 83 (auto/); jmb 14:31 Pulse 100 MON; Pulse Ox 92% ; jmb 14:47 BP 157 / 85 (auto/); jmb 14:48 Pulse 100 MON; Pulse Ox 93% ; jmb 14:49 BP 157 / 84; Pulse 96; Resp 20; Pulse Ox 94% on 2 lpm NC; dwg 15:01 BP 165 / 88 (auto/); jmb 15:02 Pulse 96 MON; Pulse Ox 92% ; jmb 15:31 BP 151 / 78 (auto/); jmb 15:31 Pulse 98 MON; Pulse Ox 92% ; jmb 16:10 BP 172 / 101 LA Supine (auto/lg); Pulse 86; Resp 24; Temp 98.5; Pulse Ox 93% on R/A; bnb Pain 0/10; 16:16 BP 136 / 88 (man/lg); jmb 10:25 Body Mass Index 21.11 (72.57 kg, 185.42 cm) elp Vitals: 10:25 Log In Time: March 29, 2016 at 10:23. RN notified that patient meets Red Flag elp criteria. ED Course: 10:24 Patient visited by Johanna Valencia PCA. elp 10:24 Patient moved to Waiting elp 10:25 Hill Cummings is Private Physician. elp 10:27 Patient visited by Johanna Valencia PCA. elp 10:27 Kelli Ryan RN is Primary Nurse. elp 10:27 Mahsa Cortez RN is Primary Nurse. elp 10:27 Patient moved to 10 elp 10:34 Tari Frankel MD is Attending Physician. fg 10:34 Patient visited by Tari Frankel MD. fg 10:37 Triage Initiated ja5 10:45 O2 via nasal cannula \T\ 2L/min. ja5 11:28 [facility] Payment Agreement was scanned into [employer] and attached to record. mm15 11:35 Patient visited by Connie Torres PCA. rs6 11:35 EKG done. (by ED staff). Reviewed by Tari Frankel MD. rs6 11:37 Basic Metabolic Profile Sent. ja5 11:37 CBC with Diff Sent. ja5 11:37 Inserted saline lock: 20 gauge in left antecubital area. ja5 11:38 Patient visited by Concepcion Chavarria RN. ja5 12:36 Patient visited by Concepcion Chavarria,CHRISTOPH. ja5 13:12 Primary Nurse role handed off by Mahsa Cortez, CHRISTOPH jc4 13:33 Patient visited by Jess Ryan RN. ms18 13:34 CT Chest Angio R/O PE Returned. EDMS 13:55 Mariela Mcneil is Hospitalizing Provider. fg 14:17 Patient visited by José Miguel Victoria, CHRISTOPH. dwg 14:26 Patient visited by Concepcion Chavarria RN. ja5 14:27 Patient visited by Concepcion Chavarria RN. ja5 14:50 Patient visited by José Miguel Victoria RN. dwg 15:51 Patient visited by Sridhar Marshall RN. jmb 16:08 The patient / caregiver is instructed regarding the plan of care and ED course. jmb 16:08 No procedures done that require assistance. jmb 16:11 Patient visited by Concepcion Marshall PCA. bnb 03/30 12:57 T-Sheet-- Draft Copy was scanned into [employer] and attached to record. gb 12:57 ECG/EKG was scanned into [employer] and attached to record. lisa Administered Medications: 03/29 12:30 Drug: Magnesium Sulfate 1 grams [magnesium sulfate 1 gram/100 mL in dextrose 5 % ja5 intravenous piggyback] {Co-Signature: jc4 (Mahsa Cortez RN).} Route: IVPB; Infused Over: 1 hrs; Site: left antecubital; 13:33 Follow up: IV Status: Completed infusion ms18 12:46 Drug: Albuterol-Ipratropium 3 ml [ipratropium-albuterol 0.5 mg-3 mg(2.5 mg base)/3 mL cs15 nebulization soln (3 mL)] Route: Inhalation; 13:05 Drug: Albuterol-Ipratropium 3 ml [ipratropium-albuterol 0.5 mg-3 mg(2.5 mg base)/3 mL cs15 nebulization soln (3 mL)] Route: Inhalation; RT: 12:46 Initial Med Neb Given as ordered. Respiratory: Respiratory effort is labored, cs15 Respiratory pattern is regular Breath sounds are coarse Breath sounds with wheezes bilaterally. at expiration Reports took albuterol this morning but didn't really help. He stated that when he gets DUONEB it really helps. 13:14 Subsequent Med Neb Given as ordered. Respiratory: Breath sounds with wheezes cs15 bilaterally. Order Results: Lab Order: Basic Metabolic Profile; SPEC'M 03/29/16 11:32 Test: GLUCOSE, FASTING; Value: 110; Range: 70-105; Abnormal: Above high normal; Units: MG/DL; Status: F Test: BLOOD UREA NITROGEN; Value: 15; Range: 7-18; Units: MG/DL; Status: F Test: CREATININE FOR GFR; Value: 1.31; Range: 0.70-1.30; Abnormal: Above high normal; Units: MG/DL; Status: F Test: GLOMERULAR FILTRATION RATE; Value: > 60.0; Range: >60; Status: F Test: SODIUM LEVEL; Value: 141; Range: 136-145; Units: MEQ/L; Status: F Test: POTASSIUM SERUM; Value: 4.0; Range: 3.5-5.1; Units: MEQ/L; Status: F Test: CHLORIDE LEVEL; Value: 106; Range: 98-107; Units: MEQ/L; Status: F Test: CARBON DIOXIDE LEVEL; Value: 27; Range: 21-32; Units: MEQ/L; Status: F Test: ANION GAP; Value: 8; Range: 8-16; Units: MEQ/L; Status: F Test: CALCIUM LEVEL; Value: 9.0; Range: 8.5-10.1; Units: MG/DL; Status: F Test Note: ; Units are mL/min/1.73 m2 Chronic Kidney Disease Staging per NKF: Stage I & II GFR >=60 Normal to Mildly Decreased Stage III GFR 30-59 Moderately Decreased Stage IV GFR 15-29 Severely Decreased Stage V GFR <15 Very Little GFR Left ESRD GFR <15 on RECORDING STUDIO [employer]NSHIP Lab Order: CBC with Diff; SPEC'M 03/29/16 11:32 Test: WHITE BLOOD COUNT; Value: 14.0; Range: 4.0-10.0; Abnormal: Above high normal; Units: K/mm3; Status: F Test: RED BLOOD COUNT; Value: 5.35; Range: 4.30-6.10; Units: M/mm3; Status: F Test: HEMOGLOBIN; Value: 16.1; Range: 14.0-18.0; Units: g/dl; Status: F Test: HEMATOCRIT; Value: 46.9; Range: 42.0-52.0; Units: %; Status: F Test: MEAN CORPUSCULAR VOLUME; Value: 87.5; Range: 80.0-96.0; Units: fl; Status: F Test: MEAN CORPUSCULAR HEMOGLOBIN; Value: 30.1; Range: 27.0-33.0; Units: pg; Status: F Test: MEAN CORPUSCULAR HGB CONC; Value: 34.4; Range: 32.0-36.5; Units: g/dl; Status: F Test: RED CELL DISTRIBUTION WIDTH; Value: 12.8; Range: 11.5-14.5; Units: %; Status: F Test: PLATELET COUNT, AUTOMATED; Value: 279; Range: 150-450; Units: k/mm3; Status: F Test: NEUTROPHILS %; Value: 85.7; Range: 36.0-66.0; Abnormal: Above high normal; Units: %; Status: F Test: LYMPH %; Value: 8.7; Range: 24.0-44.0; Abnormal: Below low normal; Units: %; Status: F Test: MONO %; Value: 4.1; Range: 0.0-5.0; Units: %; Status: F Test: EOS %; Value: 0.4; Range: 0.0-3.0; Units: %; Status: F Test: BASO %; Value: 0.1; Range: 0.0-1.0; Units: %; Status: F Test: LARGE UNSTAINED CELL %; Value: 1.1; Range: 0.0-4.0; Units: %; Status: F Test: NEUTROPHILS #; Value: 12.0; Range: 1.8-7.7; Abnormal: Above high normal; Units: K/mm3; Status: F Test: LYMPH #; Value: 1.2; Range: 1.5-4.5; Abnormal: Below low normal; Units: K/mm3; Status: F Test: MONO #; Value: 0.6; Range: 0.0-0.8; Units: K/mm3; Status: F Test: EOS #; Value: 0.0; Range: 0.0-0.50; Units: K/mm3; Status: F Test: BASO #; Value: 0.0; Range: 0.0-0.2; Units: K/mm3; Status: F Test: LARGE UNSTAINED CELL #; Value: 0.2; Range: 0.0-0.4; Units: K/mm3; Status: F Radiology Order: CT Chest Angio R/O PE Test: CT Chest Angio R/O PE REASON FOR EXAMINATION: Shortness of Breath; CT ANGIO CHEST:; ; HISTORY: Shortness of breath.; ; CONTRAST: Isovue 370, 75 mL.; ; There are no filling defects in the main , right and left pulmonary arteries; or their branches. The lungs are clear. There is no pleural effusion. There is; no hilar or mediastinal mass. The heart is normal in size.; ; IMPRESSION:; ; There is no pulmonary embolism.; ; ; Signed by; Michael Doshi MD 03/29/2016 01:14 P; Outcome: 13:55 Decision to Hospitalize by Provider. fg 16:08 Discharge Assessment: Patient awake, alert and oriented x 3. No cognitive and/or jmb functional deficits noted. Patient verbalized understanding of disposition instructions. Patient awake and alert. obeys commands, Oriented to person, place and time. Patient verbalized understanding of disposition instructions. Patient has no functional deficits. patient administered narcotics - no. The following High Risk Discharge criteria are identified: None. Admitted to Med/Surg accompanied by tech, via stretcher, with chart. Condition: stable Condition: improved. No special radiology studies were completed. Property :Personal belongings accompany Pt. 16:18 Patient left the ED. jmb Signatures: Dispatcher [employer] EDMS José Miguel Victoria, RN RN Yanet Soto, Reg Reg gb Mahsa Cortez, RN RN jc4 Francisco Lujan mm15 Johanna Valencia, GRIPPER ATTACHER GRIPPER ATTACHER talip Sridhar Marshall,RN RN mamadoub Jess Ryan,RN RN ms18 Connie Torres, GRIPPER ATTACHER GRIPPER ATTACHER rs6 Tari Frankel MD MD fg Shelton, Caleb,RT RT cs15 Concepcion Chavarria,RN RN Concepcion De La Rosa, GRIPPER ATTACHER GRIPPER ATTACHER bnb Mahsa Cortez RN jc4 Chart Complete MTDD
--- NOTE | 2016-03-31 17:19 | EDDOCDS ---
Physician Documentation [facility] Name: Sung Lilly Age: 35 yrs Sex: Male : 1980 Arrival Date: 03/29/2016 Time: 10:23 Bed 10 Private MD: Disposition: 03/29/16 13:55 Hospitalization ordered by Mariela Mcneil for Inpatient Admission. Preliminary diagnosis is Asthma. - Bed requested for 4 Isabella. - Status is Inpatient Admission. jmb - Condition is Stable. - Problem is chronic. - Symptoms are unchanged. Historical: - Allergies: no known allergies; - Home Meds: 1. albuterol sulfate 90 mcg/actuation Inhl HFAA 2 puffs every 4 hours as needed (Last dose: 03/29/2016 09:00) 2. albuterol sulfate 2.5 mg /3 mL (0.083 %) Nebulizer nebu 3 mL 4 times per day as needed (Last dose: 03/29/2016 08:00) 3. dexamethasone 4 mg Oral tab 1 tab once daily prescribed one dose (Last dose: 03/29/2016 09:00) - PMHx: Asthma; Depression; Anxiety; - PSHx: none; - Social history: Smoking status: Patient states former smoker of tobacco. No barriers to communication noted. - Family history: Not pertinent. - : The pt / caregiver states he / she is not on anticoagulants. Home medication list is obtained from the patient. - Exposure Risk Screening:: None identified. Vital Signs: 03/29 10:25 BP 147 / 95; Pulse 103; Resp 26; Temp 98.3(O); Pulse Ox 90% on R/A; Weight 72.57 kg / elp 159.99 lbs; Height 6 ft. 1 in. (185.42 cm); 10:31 BP 141 / 94 (auto/); ja5 10:32 Pulse 104 MON; Pulse Ox 90% ; ja5 10:44 Pulse Ox 94% on 2 lpm NC; ja5 11:01 BP 134 / 83 (auto/); ja5 11:02 Pulse 86 MON; Pulse Ox 94% ; ja5 12:01 BP 146 / 76 (auto/); ja5 12:01 Pulse 84 MON; Pulse Ox 94% ; ja5 12:30 Pulse 82 MON; Pulse Ox 96% ; ja5 12:31 BP 156 / 87 (auto/); ja5 14:31 BP 156 / 83 (auto/); jmb 14:31 Pulse 100 MON; Pulse Ox 92% ; jmb 14:47 BP 157 / 85 (auto/); jmb 14:48 Pulse 100 MON; Pulse Ox 93% ; jmb 14:49 BP 157 / 84; Pulse 96; Resp 20; Pulse Ox 94% on 2 lpm NC; dwg 15:01 BP 165 / 88 (auto/); jmb 15:02 Pulse 96 MON; Pulse Ox 92% ; jmb 15:31 BP 151 / 78 (auto/); jmb 15:31 Pulse 98 MON; Pulse Ox 92% ; jmb 16:10 BP 172 / 101 LA Supine (auto/lg); Pulse 86; Resp 24; Temp 98.5; Pulse Ox 93% on R/A; bnb Pain 0/10; 16:16 BP 136 / 88 (man/lg); jmb 10:25 Body Mass Index 21.11 (72.57 kg, 185.42 cm) elp MDM: 11:22 Magnesium Sulfate 1 grams IVPB once over 1 hrs; administer over at least 1 hour ordered.fg 11:22 IV Saline Lock ordered. fg 11:23 Basic Metabolic Profile Ordered. EDMS 11:23 CBC with Diff Ordered. EDMS 11:23 CT Chest Angio R/O PE Ordered. EDMS 11:23 ECG WITH READING ER PHYS+CARDIAG ordered. EDMS 11:27 Financial registration complete. mm15 11:28 [facility] Payment Agreement was scanned into [employer] and attached to record. mm15 12:40 Albuterol-Ipratropium 3 ml Inhalation once ordered. fg 12:58 Albuterol-Ipratropium 3 ml Inhalation once ordered. fg 13:45 REGULAR+DIET ordered. EDMS 15:08 DRUG EVAL TOXICOLOGY ED ONLY Ordered. EDMS 15:10 REGULAR DIET ordered. EDMS 15:37 Admission / Observation Status ordered. EDMS 15:43 RESPIRATORY PANEL Ordered. EDMS 03/30 12:57 T-Sheet-- Draft Copy was scanned into [employer] and attached to record. gb 12:57 ECG/EKG was scanned into [employer] and attached to record. gb Administered Medications: 03/29 12:30 Drug: Magnesium Sulfate 1 grams [magnesium sulfate 1 gram/100 mL in dextrose 5 % ja5 intravenous piggyback] {Co-Signature: jc4 (Mahsa Cortez RN).} Route: IVPB; Infused Over: 1 hrs; Site: left antecubital; 13:33 Follow up: IV Status: Completed infusion ms18 12:46 Drug: Albuterol-Ipratropium 3 ml [ipratropium-albuterol 0.5 mg-3 mg(2.5 mg base)/3 mL cs15 nebulization soln (3 mL)] Route: Inhalation; 13:05 Drug: Albuterol-Ipratropium 3 ml [ipratropium-albuterol 0.5 mg-3 mg(2.5 mg base)/3 mL cs15 nebulization soln (3 mL)] Route: Inhalation; Signatures: Dispatcher Med[employer] EDMS Yanet Yin, Reg Reg gb Francisco Lujan mm15 Sridhar MarshallRN Cole Gastelum RN CHRISTOPH [facility] Tari Frankel MD MD Cnocepcion Chavarria RN RN ja5 Smith, Mallory RN ms18 Ismael Pantoja RT cs15 Mahsa Cortez RN jc4 The chart was reviewed and I authenticate all verbal orders and agree with the evaluation and treatment provided.Attachments: 11:28 [facility] Payment Agreement mm15 03/30 12:57 T-Sheet-- Draft Copy gb 12:57 ECG/EKG Chart Complete MTDD
--- NOTE | 2016-03-31 17:19 | EDDOCDS ---
Physician Documentation [facility] Name: Sung Lilly Age: 35 yrs Sex: Male : 1980 Arrival Date: 03/29/2016 Time: 10:23 Bed 10 Private MD: Disposition: 03/29/16 13:55 Hospitalization ordered by Mariela Mcneil for Inpatient Admission. Preliminary diagnosis is Asthma. - Bed requested for 4 Grant. - Status is Inpatient Admission. jmb - Condition is Stable. - Problem is chronic. - Symptoms are unchanged. Historical: - Allergies: no known allergies; - Home Meds: 1. albuterol sulfate 90 mcg/actuation Inhl HFAA 2 puffs every 4 hours as needed (Last dose: 03/29/2016 09:00) 2. albuterol sulfate 2.5 mg /3 mL (0.083 %) Nebulizer nebu 3 mL 4 times per day as needed (Last dose: 03/29/2016 08:00) 3. dexamethasone 4 mg Oral tab 1 tab once daily prescribed one dose (Last dose: 03/29/2016 09:00) - PMHx: Asthma; Depression; Anxiety; - PSHx: none; - Social history: Smoking status: Patient states former smoker of tobacco. No barriers to communication noted. - Family history: Not pertinent. - : The pt / caregiver states he / she is not on anticoagulants. Home medication list is obtained from the patient. - Exposure Risk Screening:: None identified. Vital Signs: 03/29 10:25 BP 147 / 95; Pulse 103; Resp 26; Temp 98.3(O); Pulse Ox 90% on R/A; Weight 72.57 kg / elp 159.99 lbs; Height 6 ft. 1 in. (185.42 cm); 10:31 BP 141 / 94 (auto/); ja5 10:32 Pulse 104 MON; Pulse Ox 90% ; ja5 10:44 Pulse Ox 94% on 2 lpm NC; ja5 11:01 BP 134 / 83 (auto/); ja5 11:02 Pulse 86 MON; Pulse Ox 94% ; ja5 12:01 BP 146 / 76 (auto/); ja5 12:01 Pulse 84 MON; Pulse Ox 94% ; ja5 12:30 Pulse 82 MON; Pulse Ox 96% ; ja5 12:31 BP 156 / 87 (auto/); ja5 14:31 BP 156 / 83 (auto/); jmb 14:31 Pulse 100 MON; Pulse Ox 92% ; jmb 14:47 BP 157 / 85 (auto/); jmb 14:48 Pulse 100 MON; Pulse Ox 93% ; jmb 14:49 BP 157 / 84; Pulse 96; Resp 20; Pulse Ox 94% on 2 lpm NC; dwg 15:01 BP 165 / 88 (auto/); jmb 15:02 Pulse 96 MON; Pulse Ox 92% ; jmb 15:31 BP 151 / 78 (auto/); jmb 15:31 Pulse 98 MON; Pulse Ox 92% ; jmb 16:10 BP 172 / 101 LA Supine (auto/lg); Pulse 86; Resp 24; Temp 98.5; Pulse Ox 93% on R/A; bnb Pain 0/10; 16:16 BP 136 / 88 (man/lg); jmb 10:25 Body Mass Index 21.11 (72.57 kg, 185.42 cm) elp MDM: 11:22 Magnesium Sulfate 1 grams IVPB once over 1 hrs; administer over at least 1 hour ordered.fg 11:22 IV Saline Lock ordered. fg 11:23 Basic Metabolic Profile Ordered. EDMS 11:23 CBC with Diff Ordered. EDMS 11:23 CT Chest Angio R/O PE Ordered. EDMS 11:23 ECG WITH READING ER PHYS+CARDIAG ordered. EDMS 11:27 Financial registration complete. mm15 11:28 [facility] Payment Agreement was scanned into [employer] and attached to record. mm15 12:40 Albuterol-Ipratropium 3 ml Inhalation once ordered. fg 12:58 Albuterol-Ipratropium 3 ml Inhalation once ordered. fg 13:45 REGULAR+DIET ordered. EDMS 15:08 DRUG EVAL TOXICOLOGY ED ONLY Ordered. EDMS 15:10 REGULAR DIET ordered. EDMS 15:37 Admission / Observation Status ordered. EDMS 15:43 RESPIRATORY PANEL Ordered. EDMS 03/30 12:57 T-Sheet-- Draft Copy was scanned into [employer] and attached to record. gb 12:57 ECG/EKG was scanned into [employer] and attached to record. gb Administered Medications: 03/29 12:30 Drug: Magnesium Sulfate 1 grams [magnesium sulfate 1 gram/100 mL in dextrose 5 % ja5 intravenous piggyback] {Co-Signature: jc4 (Mahsa Cortez RN).} Route: IVPB; Infused Over: 1 hrs; Site: left antecubital; 13:33 Follow up: IV Status: Completed infusion ms18 12:46 Drug: Albuterol-Ipratropium 3 ml [ipratropium-albuterol 0.5 mg-3 mg(2.5 mg base)/3 mL cs15 nebulization soln (3 mL)] Route: Inhalation; 13:05 Drug: Albuterol-Ipratropium 3 ml [ipratropium-albuterol 0.5 mg-3 mg(2.5 mg base)/3 mL cs15 nebulization soln (3 mL)] Route: Inhalation; Signatures: Dispatcher MedHost EDMS Yanet Yin, Reg Reg gb Francisco Lujan mm15 Sridhar MarshallRN Cole Gastelum RN CHRISTOPH [facility] Tari Frankel MD MD Concepcion Chavarria RN RN ja5 Smith, Mallory RN ms18 Ismael Pantoja RT cs15 Mahsa Cortez RN jc4 The chart was reviewed and I authenticate all verbal orders and agree with the evaluation and treatment provided.Attachments: 11:28 [facility] Payment Agreement mm15 03/30 12:57 T-Sheet-- Draft Copy gb 12:57 ECG/EKG Chart Complete MTDD
[2016-03-31 22:00] VITALS: BP 133/69
[2016-04-01] MEDS: LEVALBUTEROL 1.25 MG/0.5 ML CONCENTRATE NEB INH SCH ×5 (04:00→20:00)
[2016-04-01] MEDS: methylPREDNISolone INJ 125 MG/2 ML VIAL (J2930) IV SCH ×3 (05:35→21:51)
[2016-04-01] MEDS: MOXIFLOXACIN 400 MG TAB PO SCH (05:35)
[2016-04-01 05:54] LABS: BASO % 0.2 % (0.0-1.0); LARGE UNSTAINED CELL # 0.3 K/mm3 (0.0-0.4); LARGE UNSTAINED CELL % 1.7 % (0.0-4.0); LYMPH # 1.6 K/mm3 (1.5-4.5); LYMPH % 8.3 % (24.0-44.0); MEAN CORPUSCULAR HEMOGLOBIN 28.9 pg (27.0-33.0); MEAN CORPUSCULAR VOLUME 90.4 fl (80.0-96.0); MONO # 1.3 K/mm3 (0.0-0.8); MONO % 6.8 % (0.0-5.0); NEUTROPHILS # 16.2 K/mm3 (1.8-7.7); NEUTROPHILS % 82.9 % (36.0-66.0); PLATELET COUNT, AUTOMATED 289 k/mm3 (150-450); RED CELL DISTRIBUTION WIDTH 12.7 % (11.5-14.5); WHITE BLOOD COUNT 19.5 K/mm3 (4.0-10.0)
[2016-04-01 06:00] VITALS: BP 126/61
[2016-04-01 06:10] LABS: ALBUMIN 3.4 GM/DL (3.2-5.2); ALKALINE PHOSPHATASE 38 U/L (45-117); ALT/SGPT 44 U/L (12-78); ANION GAP 10 MEQ/L (8-16); AST/SGOT 8 U/L (15-37); BILIRUBIN,TOTAL 0.2 MG/DL (0.2-1.0); BLOOD UREA NITROGEN 16 MG/DL (7-18); CALCIUM LEVEL 8.5 MG/DL (8.5-10.1); CARBON DIOXIDE LEVEL 26 MEQ/L (21-32); CHLORIDE LEVEL 106 MEQ/L (98-107); CREATININE FOR GFR 0.99 MG/DL (0.70-1.30); GLOMERULAR FILTRATION RATE > 60.0 (>60); GLUCOSE, FASTING 122 MG/DL (70-105); POTASSIUM SERUM 3.9 MEQ/L (3.5-5.1); SODIUM LEVEL 142 MEQ/L (136-145); TOTAL PROTEIN 6.5 GM/DL (6.4-8.2)
[2016-04-01] MEDS ORDERED: MAALOX 30 ML SUSP *UDC PO PRN (07:00)
[2016-04-01] MEDS ORDERED: GI COCKTAIL 50ML BTL(HYOSCYAMINE/MAALOX/LIDOCAINE VISCOUS)(1:3:1) PO PRN (07:00)
[2016-04-01 08:45] VITALS: BP 146/76
[2016-04-01] MEDS: SYMBICORT 80/4.5MCG INHALER 6GM INH SCH ×2 (08:58→20:30)
[2016-04-01] MEDS: MONTELUKAST 10 MG TAB PO SCH (10:26)
[2016-04-01] MEDS: OMEPRAZOLE 20 MG CAP PO SCH (10:26)
[2016-04-01] MEDS: SUCRALFATE 1 GM TAB PO SCH ×3 (10:26→18:38)
[2016-04-01] MEDS: BENZONATATE 100 MG CAP PO SCH ×2 (10:26→21:50)
[2016-04-01] MEDS: ENOXAPARIN 40 MG/0.4 ML SYRINGE (J1650) SC SCH (10:27)
[2016-04-01] MEDS ORDERED: CODEINE SULFATE 30 MG TAB PO PRN (10:45)
[2016-04-01] MEDS: ACETAMINOPHEN TAB 650MG DOSE (2X325MG) PO PRN (10:46)
[2016-04-01 14:06] VITALS: BP 140/88
[2016-04-01 20:31] VITALS: O2SAT 92
[2016-04-01 22:00] VITALS: BP 125/72
[2016-04-02] MEDS: LEVALBUTEROL 1.25 MG/0.5 ML CONCENTRATE NEB INH SCH ×7 (00:01→23:45)
[2016-04-02 03:35] VITALS: O2SAT 93
[2016-04-02 06:00] VITALS: BP 136/64
[2016-04-02 06:19] LABS: BASO # 0.2 K/mm3 (0.0-0.2); EOS % 0.2 % (0.0-3.0); LARGE UNSTAINED CELL # 0.3 K/mm3 (0.0-0.4); LARGE UNSTAINED CELL % 1.4 % (0.0-4.0); LYMPH # 1.6 K/mm3 (1.5-4.5); LYMPH % 6.3 % (24.0-44.0); MEAN CORPUSCULAR HGB CONC 32.9 g/dl (32.0-36.5); MEAN CORPUSCULAR VOLUME 87.9 fl (80.0-96.0); MONO # 1.8 K/mm3 (0.0-0.8); MONO % 8.5 % (0.0-5.0); NEUTROPHILS % 82.6 % (36.0-66.0); PLATELET COUNT, AUTOMATED 258 k/mm3 (150-450); RED CELL DISTRIBUTION WIDTH 13.5 % (11.5-14.5); WHITE BLOOD COUNT 20.6 K/mm3 (4.0-10.0)
[2016-04-02 06:28] LABS: ALBUMIN 3.4 GM/DL (3.2-5.2); ALKALINE PHOSPHATASE 45 U/L (45-117); ALT/SGPT 46 U/L (12-78); ANION GAP 10 MEQ/L (8-16); AST/SGOT 12 U/L (15-37); BILIRUBIN,TOTAL 0.2 MG/DL (0.2-1.0); BLOOD UREA NITROGEN 14 MG/DL (7-18); CALCIUM LEVEL 8.2 MG/DL (8.5-10.1); CARBON DIOXIDE LEVEL 24 MEQ/L (21-32); CHLORIDE LEVEL 107 MEQ/L (98-107); CREATININE FOR GFR 1.11 MG/DL (0.70-1.30); GLOMERULAR FILTRATION RATE > 60.0 (>60); GLUCOSE, FASTING 192 MG/DL (70-105); POTASSIUM SERUM 3.8 MEQ/L (3.5-5.1); SODIUM LEVEL 141 MEQ/L (136-145); TOTAL PROTEIN 6.5 GM/DL (6.4-8.2)
[2016-04-02] MEDS: methylPREDNISolone INJ 125 MG/2 ML VIAL (J2930) IV SCH ×3 (06:29→20:37)
[2016-04-02] MEDS: MOXIFLOXACIN 400 MG TAB PO SCH (06:30)
[2016-04-02] MEDS: SYMBICORT 80/4.5MCG INHALER 6GM INH SCH ×2 (08:12→20:21)
[2016-04-02] MEDS: BENZONATATE 100 MG CAP PO SCH ×2 (11:26→20:38)
[2016-04-02] MEDS: ENOXAPARIN 40 MG/0.4 ML SYRINGE (J1650) SC SCH (11:27)
[2016-04-02] MEDS: SUCRALFATE 1 GM TAB PO SCH ×3 (11:27→17:42)
[2016-04-02] MEDS: MONTELUKAST 10 MG TAB PO SCH (11:27)
[2016-04-02] MEDS: OMEPRAZOLE 20 MG CAP PO SCH (11:27)
[2016-04-02 14:00] VITALS: BP 143/77
[2016-04-02 20:22] VITALS: O2SAT 97
[2016-04-02 22:00] VITALS: BP 138/72
[2016-04-03] VITALS (7 sets, daily range): BP systolic 110–135; BP diastolic 60–71; O2SAT 92–94
[2016-04-03] MEDS: LEVALBUTEROL 1.25 MG/0.5 ML CONCENTRATE NEB INH SCH ×6 (03:45→23:35)
[2016-04-03] MEDS: MOXIFLOXACIN 400 MG TAB PO SCH (05:06)
[2016-04-03] MEDS: methylPREDNISolone INJ 125 MG/2 ML VIAL (J2930) IV SCH (05:06)
[2016-04-03 06:14] LABS: BASO # 0.3 K/mm3 (0.0-0.2); BASO % 1.4 % (0.0-1.0); EOS % 0.1 % (0.0-3.0); LARGE UNSTAINED CELL # 0.3 K/mm3 (0.0-0.4); LARGE UNSTAINED CELL % 1.5 % (0.0-4.0); LYMPH # 1.7 K/mm3 (1.5-4.5); LYMPH % 6.3 % (24.0-44.0); MEAN CORPUSCULAR HEMOGLOBIN 29.1 pg (27.0-33.0); MEAN CORPUSCULAR HGB CONC 33.4 g/dl (32.0-36.5); MEAN CORPUSCULAR VOLUME 87.2 fl (80.0-96.0); MONO # 1.8 K/mm3 (0.0-0.8); MONO % 8.1 % (0.0-5.0); NEUTROPHILS # 18.1 K/mm3 (1.8-7.7); NEUTROPHILS % 82.7 % (36.0-66.0); PLATELET COUNT, AUTOMATED 262 k/mm3 (150-450); RED CELL DISTRIBUTION WIDTH 13.5 % (11.5-14.5); WHITE BLOOD COUNT 21.9 K/mm3 (4.0-10.0)
[2016-04-03 06:29] LABS: ALBUMIN 3.3 GM/DL (3.2-5.2); ALBUMIN/GLOBULIN RATIO 1.06 (1.00-1.93); ALKALINE PHOSPHATASE 34 U/L (45-117); ALT/SGPT 51 U/L (12-78); ANION GAP 11 MEQ/L (8-16); AST/SGOT 13 U/L (15-37); BILIRUBIN,TOTAL 0.3 MG/DL (0.2-1.0); BLOOD UREA NITROGEN 16 MG/DL (7-18); CALCIUM LEVEL 8.2 MG/DL (8.5-10.1); CARBON DIOXIDE LEVEL 27 MEQ/L (21-32); CHLORIDE LEVEL 103 MEQ/L (98-107); CREATININE FOR GFR 1.08 MG/DL (0.70-1.30); GLOMERULAR FILTRATION RATE > 60.0 (>60); GLUCOSE, FASTING 115 MG/DL (70-105); POTASSIUM SERUM 3.8 MEQ/L (3.5-5.1); SODIUM LEVEL 141 MEQ/L (136-145); TOTAL PROTEIN 6.4 GM/DL (6.4-8.2)
[2016-04-03] MEDS: SUCRALFATE 1 GM TAB PO SCH ×3 (08:29→17:07)
[2016-04-03] MEDS: BENZONATATE 100 MG CAP PO SCH ×2 (08:29→20:15)
[2016-04-03] MEDS: MONTELUKAST 10 MG TAB PO SCH (08:29)
[2016-04-03] MEDS: OMEPRAZOLE 20 MG CAP PO SCH (08:29)
[2016-04-03] MEDS: predniSONE 20 MG TAB PO SCH (08:30)
--- NOTE | 2016-04-03 08:30 | IPN ---
DATE: 04/01/2016 Patient complains of persistent coughing fits especially in the evening time. He complains of shortness of breath with ambulation, saturations remained adequate at 93-96% on room air. States that he is unable to ambulate more than 10-15 feet without increasing wheezing. Patient's reflux symptoms are still persistent despite Protonix. He is tolerating his diet well, however. He still complains of insomnia and difficulty sleeping and increased anxiety. Temperature 97.8, pulse 72, respiratory rate 18, blood pressure 146/76, 93% on room air. Generally, patient is awake, alert, oriented times three, answering questions appropriately. No use of respiratory accessory muscles. Able to complete full sentences. No conversational dyspnea. No cyanosis. Lungs are diminished with expiratory wheezing and course rhonchi bilaterally. Patient's air entry is improved bilaterally compared to yesterday. Heart: S1, S2, sinus tachycardia. Abdomen: Soft, nontender, nondistended. Positive bowel sounds times four quadrants. No hepatosplenomegaly. Extremities: No pitting edema, cyanosis or clubbing. LABORATORY DATA: White count 19.5, hemoglobin 14, hematocrit 45, platelet count 289. Sodium 142, potassium 3.9, chloride 106, bicarbonate 26, BUN 16, creatinine 0.99, glucose 122. Microbiology: Respiratory syncytial virus (RSV) panel negative by PCR. ASSESSMENT AND PLAN: This is a 35-year-old male with history of polysubstance abuse, previously smoked, quit 2 weeks ago, anxiety, asthma, depression, presented to the emergency room after failure to improve on prednisone and antibiotics for asthma exacerbation by urgent care. Patient lost his insurance, has had no primary care for some time. He currently has medical insurance and has presented for worsening respiratory distress despite outpatient therapy for asthma exacerbation. CURRENT ISSUES: 1. Asthma exacerbation. Patient has severe persistent asthma, current on IV Solu-Medrol, nebulizer treatments, supplemental oxygen as needed to keep saturations above 90% with ambulation. Due to complaints of palpitation, patient's albuterol has been changed to Xopenex. He is continue on inhaled steroids and long acting beta agonist,mast cell stabilizer. 2. Anxiety and depression, stable. 3. Reflux on PPI. GI cocktail and Maalox. 4. Insomnia, as needed Ambien for sleep. 5. Tobacco abuse, quit 2 weeks ago. Declining nicotine patch. 6. Deep venous thrombosis (DVT) prophylaxis with Lovenox subcutaneous. DISPOSITION: Due to his slow recovery, patient may be discharged in 1-2 days depending on his clinical status. MTDD
--- NOTE | 2016-04-03 08:33 | IPN ---
DATE: 04/02/2016 Patient is seen and examined at the bedside. Chart has been reviewed. He complains of increasing coughing fit yesterday, has not tried codeine suddenly improved with nebulizer treatments. Still desaturates to about 88% when he ambulates. Currently 92-93% on room air. Afebrile overnight. Temperature 98.5, pulse 67, respiratory rate 16, blood pressure 136/64, 92% on 1 liter nasal cannula. Generally, no conversational dyspnea and no use of respiratory accessory muscles. No cyanosis. Able to speak in full sentences. Lungs are diminished with course rhonchi bilaterally. Air entry has improved since yesterday. Heart: S1, S2, sinus rhythm. Abdomen is soft, nontender, nondistended. Normoactive bowel sounds. Extremities: No cyanosis, clubbing or pitting edema. Laboratory data CBC, metabolic panel, imaging studies have been reviewed. ASSESSMENT AND PLAN: 35-year-old male with history of anxiety, polysubstance abuse, asthma as a child, tobacco use and quit smoking 2 weeks ago, depression, presented to urgent care for worsening shortness of breath about 4 weeks ago treated with prednisone and amoxicillin, nebulizer treatments with albuterol with no improvement. Patient had previously not had any primary care physician but currently has medical insurance with worsening symptoms he was admitted for asthma exacerbation. CURRENT ISSUES: 1. Asthma exacerbation. He had severe persistent asthma. Currently on IV Solu-Medrol, nebulizer treatments, oxygen for saturations less than 88%. Due to complaints of palpitations, patient's albuterol has been changed to Xopenex. He is continued on inhaled steroids, long-acting beta agonist _mast cell stabilizer and for comfort supplement the oxygen for saturations less than 88% with ambulation. As needed codeine with sulfate for coughing fits. 2. Anxiety and depression, stable. 3. Insomnia, as needed medication for sleep. 4. Tobacco abuse, quit 2 weeks ago. 5. Deep venous thrombosis (DVT) prophylaxis with Lovenox. REZA
[2016-04-03] MEDS: SYMBICORT 80/4.5MCG INHALER 6GM INH SCH ×2 (08:41→20:39)
[2016-04-03] MEDS: ENOXAPARIN 40 MG/0.4 ML SYRINGE (J1650) SC SCH (10:30)
--- NOTE | 2016-04-03 12:54 | IPN ---
DATE: 04/03/2016 Patient was seen and examined at the bedside. Chart has been reviewed. The patient's wheezing has improved. He continues to have rhonchi and difficulty with ambulating, desaturates to about 89%. Temperature 96.6, pulse 69, respiratory rate 18, blood pressure 131/69, 96% on 1 liter nasal cannula. Lungs diminished breath sounds with coarse rhonchi bilaterally. Heart S1 and S2, sinus rhythm. Abdomen soft, nontender, nondistended. Positive bowel sounds. Extremities no cyanosis, clubbing or pitting edema. Laboratory data, imaging studies and microbiology all have been reviewed. ASSESSMENT/PLAN: 35-year-old with history of anxiety, polysubstance abuse, asthma as a child, tobacco use, quit smoking two weeks ago, depression, who presented to urgent care, treated for COPD and for asthma exacerbation with no relief. CURRENT ISSUES: 1. Asthma exacerbation. Change to oral prednisone today. Continue nebulizers and oxygen, on inhaled steroids, long acting beta agonists, mast cell stabilizer as needed. Codeine for cough fits. 2. Anxiety and depression, stable. 3. Insomnia, stable. 4. Tobacco. Quit two weeks ago. 6. Deep venous thrombosis (DVT) prophylaxis with Lovenox. DISPOSITION: Discharge home in the morning if stable. ANGELD
[2016-04-04] MEDS: LEVALBUTEROL 1.25 MG/0.5 ML CONCENTRATE NEB INH SCH ×6 (03:30→23:56)
[2016-04-04] MEDS: MOXIFLOXACIN 400 MG TAB PO SCH (05:37)
[2016-04-04 06:00] VITALS: BP 138/61
[2016-04-04 07:08] LABS: MEAN CORPUSCULAR HEMOGLOBIN 29.1 pg (27.0-33.0); MEAN CORPUSCULAR HGB CONC 32.6 g/dl (32.0-36.5); MEAN CORPUSCULAR VOLUME 89.4 fl (80.0-96.0); PLATELET COUNT, AUTOMATED 241 k/mm3 (150-450); RED CELL DISTRIBUTION WIDTH 12.7 % (11.5-14.5); WHITE BLOOD COUNT 18.1 K/mm3 (4.0-10.0)
[2016-04-04 07:38] LABS: ALBUMIN 3.2 GM/DL (3.2-5.2); ALBUMIN/GLOBULIN RATIO 1.07 (1.00-1.93); ALKALINE PHOSPHATASE 35 U/L (45-117); ALT/SGPT 64 U/L (12-78); ANION GAP 9 MEQ/L (8-16); AST/SGOT 16 U/L (15-37); BILIRUBIN,TOTAL 0.2 MG/DL (0.2-1.0); BLOOD UREA NITROGEN 18 MG/DL (7-18); CALCIUM LEVEL 8.1 MG/DL (8.5-10.1); CARBON DIOXIDE LEVEL 27 MEQ/L (21-32); CHLORIDE LEVEL 104 MEQ/L (98-107); CREATININE FOR GFR 1.07 MG/DL (0.70-1.30); GLOMERULAR FILTRATION RATE > 60.0 (>60); GLUCOSE, FASTING 88 MG/DL (70-105); POTASSIUM SERUM 3.2 MEQ/L (3.5-5.1); SODIUM LEVEL 140 MEQ/L (136-145); TOTAL PROTEIN 6.2 GM/DL (6.4-8.2)
[2016-04-04] MEDS: BENZONATATE 100 MG CAP PO SCH ×2 (08:11→20:47)
[2016-04-04] MEDS: OMEPRAZOLE 20 MG CAP PO SCH (08:11)
[2016-04-04] MEDS: ENOXAPARIN 40 MG/0.4 ML SYRINGE (J1650) SC SCH (08:12)
[2016-04-04] MEDS: MONTELUKAST 10 MG TAB PO SCH (08:12)
[2016-04-04] MEDS: predniSONE 20 MG TAB PO SCH (08:12)
[2016-04-04] MEDS: SUCRALFATE 1 GM TAB PO SCH ×3 (08:12→17:57)
[2016-04-04] MEDS: SYMBICORT 80/4.5MCG INHALER 6GM INH SCH ×2 (08:41→20:19)
[2016-04-04 14:00] VITALS: BP 130/70
[2016-04-04] MEDS ORDERED: POTASSIUM CHLORIDE 10 MEQ SR TABLET PO ONE (15:15)
--- NOTE | 2016-04-04 15:30 | IPN ---
DATE OF SERVICE: 04/04/2016 SUBJECTIVE: Patient seen and examined in the room today. Patient continues to have inspiratory and expiratory wheezes; however, patient noticed his breathing has shown significant improvement. Patient stated every 4 hours breathing treatment has been helping him. He does not remember the trigger of the current asthma exacerbation. No overnight events reported. OBJECTIVE: VITAL SIGNS: Temperature 96, pulse 61, respirations 18, blood pressure 138/61, pulse oximetry 93% on room air. GENERAL: No sign of acute distress. Alert and oriented times three. HEENT: Normocephalic, atraumatic. Extraocular motor grossly intact. CARDIOVASCULAR: Positive S1, S2. Regular rate. LUNGS: Positive expiratory and inspiratory wheezes. Positive rhonchi bilaterally. ABDOMEN: Soft, nontender, nondistended. Bowel sounds present. EXTREMITIES: No edema. No cyanosis. LABORATORY DATA: WBC 18.1, hemoglobin 14.8, hematocrit 45.5, platelet count 241. Sodium 140, potassium 3.2, chloride 104, carbon dioxide 27, BUN 18, creatinine 1.07, GFR greater than 60, fasting glucose 98, calcium 8.1. Total bilirubin 0.2, AST 16, ALT 64, alkaline phosphatase 35, total protein 6.2, albumin 3.2. MICROBIOLOGY: Respiratory panel negative. ASSESSMENT AND PLAN: 1. Asthma exacerbation. Patient's steroids are switched to by mouth prednisone since yesterday. Will continue to taper as tolerated. Patient is currently taking Avelox 400 mg by mouth daily. Patient is also getting nebulizer treatments. Patient is on Symbicort, Singulair. 2. Anxiety/Depression. Patient did not take any antidepressant or antipsychotic at home. Currently, patient is stable. 3. History of insomnia. 4. History of tobacco abuse. Patient quit multiple weeks ago. 5. Deep venous thrombosis (DVT) prophylaxis. Patient is on Lovenox.
[2016-04-04 22:00] VITALS: BP 130/70
[2016-04-05] MEDS: MOXIFLOXACIN 400 MG TAB PO SCH (05:49)
[2016-04-05 06:00] VITALS: BP 123/58
[2016-04-05 06:08] LABS: BASO # 0.1 K/mm3 (0.0-0.2); BASO % 0.8 % (0.0-1.0); EOS # 0.2 K/mm3 (0.0-0.50); EOS % 1.2 % (0.0-3.0); LARGE UNSTAINED CELL # 0.4 K/mm3 (0.0-0.4); LARGE UNSTAINED CELL % 2.3 % (0.0-4.0); LYMPH # 3.6 K/mm3 (1.5-4.5); LYMPH % 20.5 % (24.0-44.0); MEAN CORPUSCULAR HEMOGLOBIN 29.1 pg (27.0-33.0); MEAN CORPUSCULAR HGB CONC 32.9 g/dl (32.0-36.5); MEAN CORPUSCULAR VOLUME 88.4 fl (80.0-96.0); MONO # 1.4 K/mm3 (0.0-0.8); NEUTROPHILS # 11.8 K/mm3 (1.8-7.7); NEUTROPHILS % 67.2 % (36.0-66.0); PLATELET COUNT, AUTOMATED 253 k/mm3 (150-450); RED CELL DISTRIBUTION WIDTH 12.7 % (11.5-14.5); WHITE BLOOD COUNT 17.5 K/mm3 (4.0-10.0)
[2016-04-05 06:23] LABS: ALBUMIN 2.9 GM/DL (3.2-5.2); ALBUMIN/GLOBULIN RATIO 0.97 (1.00-1.93); ALKALINE PHOSPHATASE 36 U/L (45-117); ALT/SGPT 59 U/L (12-78); ANION GAP 8 MEQ/L (8-16); AST/SGOT 10 U/L (15-37); BILIRUBIN,TOTAL 0.2 MG/DL (0.2-1.0); BLOOD UREA NITROGEN 18 MG/DL (7-18); CALCIUM LEVEL 7.7 MG/DL (8.5-10.1); CARBON DIOXIDE LEVEL 27 MEQ/L (21-32); CHLORIDE LEVEL 105 MEQ/L (98-107); CREATININE FOR GFR 1.06 MG/DL (0.70-1.30); GLOMERULAR FILTRATION RATE > 60.0 (>60); GLUCOSE, FASTING 89 MG/DL (70-105); POTASSIUM SERUM 3.5 MEQ/L (3.5-5.1); SODIUM LEVEL 140 MEQ/L (136-145); TOTAL PROTEIN 5.9 GM/DL (6.4-8.2)
[2016-04-05] MEDS: SYMBICORT 80/4.5MCG INHALER 6GM INH SCH (07:34)
[2016-04-05] MEDS: LEVALBUTEROL 1.25 MG/0.5 ML CONCENTRATE NEB INH SCH ×2 (07:34→10:58)
[2016-04-05] MEDS: predniSONE 20 MG TAB PO SCH (09:05)
[2016-04-05] MEDS: OMEPRAZOLE 20 MG CAP PO SCH (09:05)
[2016-04-05] MEDS: ENOXAPARIN 40 MG/0.4 ML SYRINGE (J1650) SC SCH (09:06)
[2016-04-05] MEDS: BENZONATATE 100 MG CAP PO SCH (09:06)
[2016-04-05] MEDS: MONTELUKAST 10 MG TAB PO SCH (09:06)
[2016-04-05] MEDS: SUCRALFATE 1 GM TAB PO SCH (09:06)
[2016-04-05] MEDS ORDERED: PRED20TA PO (10:45)
[2016-04-05] MEDS ORDERED: OMEP20CA3 PO (10:46)
[2016-04-05] MEDS ORDERED: ALBU17IN INH (10:46)
[2016-04-05] MEDS ORDERED: BENZ100C5 PO (10:46)
[2016-04-05] MEDS ORDERED: MONT10TA2 PO (10:46)
[2016-04-05] MEDS ORDERED: SUCR1TA PO (10:46)
[2016-04-05] MEDS ORDERED: BREO1INH INH (10:46)
[2016-04-05] MEDS ORDERED: XOPEAER INH (15:58)
--- NOTE | 2016-04-06 15:56 | DSES ---
DATE OF ADMISSION: 03/29/2016 DATE OF DISCHARGE: 04/05/2016 PRIMARY CARE PROVIDER: In [facility]. Has not been followed with primary care provider for the past several years. CONSULTANTS: None. PROCEDURES: None. COMPLICATIONS: None. ADMISSION/DISCHARGE DIAGNOSES: 1. Severe asthma exacerbation. 2. Anxiety/depression. 3. History of insomnia. 4. History of tobacco abuse. HOSPITALIZATION COURSE: Patient is a 35-year-old male with a past medical history significant for anxiety/depression, asthma, and tobacco abuse, came to [facility] on 03/25/2016 for worsening shortness of breath for the past 6 weeks. Patient does not have any medication for his asthma because he did not routinely follow with the primary care provider and he did not have any insurance. He has been using Urgent Care to fill his medication. Patient was admitted to medical/surgical floor for asthma exacerbation. Patient was started initially on IV steroids and DuoNeb. Patient was placed on the nasal cannula to maintain oxygen saturations. Later, patient was started on the inhaled steroids/long-acting beta agonist and montelukast. Patient's breathing showed continuous improvement. On 04/03/2016, patient was able to wean off the nasal cannula. However, patient still continued to have significant wheezes and required intermittent nebulizer treatments. Patient's steroids were adjusted from IV to oral. On 04/05/2016, patient's breathing was close to his baseline and patient was determined medically stable for discharge with the recommendation to re-establish with his primary care provider in [place]. Patient should have outpatient followup within 1 week. OBJECTIVE: VITAL SIGNS: Temperature is 96.6, pulse is 63, respirations 18, blood pressure is 123/68, pulse oximetry is 93% in room air. GENERAL: No sign of acute distress. Alert and oriented times three. HEENT: Normocephalic, atraumatic. Extraocular motor grossly intact. CARDIOVASCULAR: Positive S1, S2, regular rate. LUNGS: Still has some expiratory wheezes bilaterally; however, improved compared to previous physical exam. ABDOMEN: Soft, nontender, and nondistended. Bowel sounds present. No rebound. No guarding. EXTREMITIES: No edema. No cyanosis. No calf tenderness. LABORATORY DATA: WBC 17.5, hemoglobin is 14.9, hematocrit 45.4, platelet count is 253. Sodium is 140, potassium 3.5, chloride 105, carbon dioxide 27, BUN 18, creatinine 1.06, GFR greater than 60, fasting glucose 89, calcium 7.7, total bilirubin 0.2, AST 10, ALT is 59, alkaline phosphatase is 36, total protein is 5.9, albumin 2.9. Microbiology: Upper respiratory panel is negative. CT angiogram showed no pulmonary embolism. DISCHARGE MEDICATION: - benzonatate 100 mg by mouth twice a day - Breo one puff inhalation daily - Xopenex two puffs inhalation every 4 hours as needed for shortness of breath or wheezes - montelukast 10 mg by mouth every morning - omeprazole 40 mg by mouth daily - prednisone on tapering dose - sucralfate 1 gram by mouth with a meal DISCHARGE INSTRUCTIONS: Discontinue line. Discharge home. Activity as tolerated. Diet as tolerated. Patient should re-establish with primary care provider in [place], and patient should have outpatient followup within 1 week. DISCHARGE CONDITION: Stable. DISCHARGE TIME: Greater than 30 minutes.
== END 2016-04-05 12:57 | disposition home or self-care (01) | DRG 141 ==
LOC: M ED 10:23 → M ED INP 15:35 → M MSPAV 16:22
PROVIDERS: ADMIT Internal Medicine; ATTEND Internal Medicine
DX: J45.909 Unspecified asthma, uncomplicated (principal); F32.9 Major depressive disorder, single episode, unspecified; Z87.891 Personal history of nicotine dependence; F41.9 Anxiety disorder, unspecified; G47.00 Insomnia, unspecified; K21.9 Gastro-esophageal reflux disease without esophagitis

== ENCOUNTER → 2019-04-23 | Outpatient (REF) | payer SELFPAY ==
[~2019-04-23] MED LIST changes: -/IPRAINH INH; +ALBU83IN INH; +ATRO0.063 INH; +BENZ-18 PO; +BREO1INH INH; +DEXA4TA PO; +LEVAINH INH; +MONT10TA4 PO; +OMEP1CAP73 PO; +PRED20TA PO; +ROBI30SU PO; +SUCR1TA PO; +TRAZ-257 PO; -TRAZ100T4 PO
[2019-04-23 22:01] LABS: INFLUENZA A AMPLIFICATION NEGATIVE (NEGATIVE); INFLUENZA B AMPLIFICATION NEGATIVE (NEGATIVE)
== END ==
LOC: M LAB REF 21:20
PROVIDERS: ATTEND Physician Assistant
DX: J11.1 Influenza due to unidentified influenza virus with other respiratory manifestations (principal)

== ENCOUNTER → 2021-05-26 | Outpatient (CLI) | payer OTHER ==
[~2021-05-26] MED LIST changes: -MONT10TA4 PO; +MONT10TA97 PO
== END ==
LOC: M WUC 08:30
PROVIDERS: ATTEND Physician Assistant
DX: R06.00 Dyspnea, unspecified (principal)

== ENCOUNTER → 2022-01-19 | Outpatient (CLI) | payer OTHER ==
[~2022-01-19] MED LIST changes: +ALBU2.5V10 INH; -ALBU83IN INH; +METHACHOLINE KIT (J7674) INH ONE
== END ==
LOC: M CARPUL 09:13
PROVIDERS: ATTEND Physician Assistant
DX: R06.00 Dyspnea, unspecified (principal)
CPT/HCPCS: 94070; J7674

== ENCOUNTER → 2022-02-15 | Outpatient (REF) | payer OTHER ==
[~2022-02-15] MED LIST changes: -METHACHOLINE KIT (J7674) INH ONE
[2022-02-15 17:45] LABS: ALBUMIN 3.9 G/DL (3.2-5.2); ALKALINE PHOSPHATASE 37 U/L (46-116); ALT/SGPT 51 U/L (7.0-40); AST/SGOT 22 U/L (<34); BILIRUBIN,TOTAL 0.3 MG/DL (0.3-1.2); BLOOD UREA NITROGEN 13 MG/DL (9-23); CALCIUM LEVEL 9.1 MG/DL (8.5-10.1); CARBON DIOXIDE LEVEL 28 MMOL/L (20-31); CHLORIDE LEVEL 104 MMOL/L (98-107); CHOLESTEROL LEVEL 215 MG/DL (<200); CHOLESTEROL RISK RATIO 7.57 (<5); CREATININE FOR GFR 0.98 MG/DL (0.70-1.30); GLOMERULAR FILTRATION RATE > 60.0 (>60); GLUCOSE, FASTING 82 MG/DL (60-100); HDL CHOLESTEROL 28.4 MG/DL (>40); LDL CHOLESTEROL 144.8 MG/DL (<100); NON-HDL-C 187 MG/DL; POTASSIUM SERUM 3.9 MMOL/L (3.5-5.1); SODIUM LEVEL 140 MMOL/L (136-145); TOTAL PROTEIN 7.1 G/DL (5.7-8.2); TRIGLYCERIDES LEVEL 209 MG/DL (<150)
[2022-02-15 17:48] LABS: THYROID STIMULATING HORMONE 3.577 uIU/ML (0.55-4.78)
[2022-02-15 17:49] LABS: BASO % 0.4 % (0.0-1.0); EOS # 0.2 10^3/uL (0.0-0.5); EOS % 2.6 % (0.0-3.0); HEMATOCRIT 46.3 % (42.0-52.0); HEMOGLOBIN 14.5 g/dl (13.5-17.5); LYMPH # 2.9 10^3/uL (1.5-5.0); LYMPH % 33.6 % (24.0-44.0); MEAN CORPUSCULAR HEMOGLOBIN 27.8 pg (27.0-33.0); MEAN CORPUSCULAR HGB CONC 31.3 g/dl (32.0-36.5); MEAN CORPUSCULAR VOLUME 88.9 fl (80.0-96.0); MONO % 11.1 % (2.0-8.0); NEUTROPHILS # 4.4 10^3/uL (1.5-8.5); NEUTROPHILS % 51.9 % (36.0-66.0); PLATELET COUNT, AUTOMATED 293 10^3/uL (150-450); RED BLOOD COUNT 5.21 10^6/uL (4.30-6.10); WHITE BLOOD COUNT 8.5 10^3/uL (4.0-10.0)
== END ==
LOC: M LAB REF 16:47
PROVIDERS: ATTEND Family Medicine Addiction Medicine
DX: E78.5 Hyperlipidemia, unspecified (principal); R53.83 Other fatigue

== ENCOUNTER → 2022-06-12 | Outpatient (REF) | payer OTHER | LOC: M LAB REF 12:12 | PROVIDERS: ATTEND Physician Assistant | DX: J02.9 Acute pharyngitis, unspecified (principal) ==

== ENCOUNTER → 2023-03-27 | Outpatient (REF) | payer OTHER ==
[2023-03-27 14:37] LABS: THYROID STIMULATING HORMONE 3.008 uIU/ML (0.55-4.78)
[2023-03-27 14:38] LABS: ALKALINE PHOSPHATASE 41 U/L (46-116); ALT/SGPT 30 U/L (7.0-40); AST/SGOT 10 U/L (<34); BILIRUBIN,TOTAL 0.3 MG/DL (0.3-1.2); BLOOD UREA NITROGEN 19 MG/DL (9-23); CALCIUM LEVEL 9.1 MG/DL (8.5-10.1); CARBON DIOXIDE LEVEL 28 MMOL/L (20-31); CHLORIDE LEVEL 108 MMOL/L (98-107); CHOLESTEROL LEVEL 249 MG/DL (<200); CHOLESTEROL RISK RATIO 7.75 (<5); CREATININE FOR GFR 1.15 MG/DL (0.70-1.30); GLOMERULAR FILTRATION RATE > 60.0 (>60); GLUCOSE, FASTING 89 MG/DL (60-100); HDL CHOLESTEROL 32.1 MG/DL (>40); LDL CHOLESTEROL 176.9 MG/DL (<100); NON-HDL-C 216.9 MG/DL; POTASSIUM SERUM 4.2 MMOL/L (3.5-5.1); SODIUM LEVEL 142 MMOL/L (136-145); TOTAL PROTEIN 6.9 G/DL (5.7-8.2); TRIGLYCERIDES LEVEL 200 MG/DL (<150)
== END ==
LOC: M LAB REF 12:39
PROVIDERS: ATTEND Family Medicine Addiction Medicine
DX: E78.5 Hyperlipidemia, unspecified (principal)

== ENCOUNTER → 2023-05-28 | Outpatient (REF) | payer OTHER ==
[2023-05-28 13:35] LABS: CHOLESTEROL RISK RATIO 5.1 (<5); HDL CHOLESTEROL 28.2 MG/DL (>40); LDL CHOLESTEROL 66.4 MG/DL (<100); NON-HDL-C 115.8 MG/DL
== END ==
LOC: M LAB REF 11:33
PROVIDERS: ATTEND Family Medicine Addiction Medicine
DX: E78.5 Hyperlipidemia, unspecified (principal)

== ENCOUNTER → 2023-12-24 | Outpatient (REF) | payer OTHER ==
[2023-12-24 14:18] LABS: THYROID STIMULATING HORMONE 3.927 uIU/ML (0.55-4.78)
[2023-12-24 14:23] LABS: ALBUMIN 4.1 G/DL (3.2-5.2); ALKALINE PHOSPHATASE 45 U/L (46-116); ALT/SGPT 39 U/L (7.0-40); AST/SGOT 14 U/L (<34); BILIRUBIN,TOTAL 0.3 MG/DL (0.3-1.2); BLOOD UREA NITROGEN 17 MG/DL (9-23); CALCIUM LEVEL 9.4 MG/DL (8.5-10.1); CARBON DIOXIDE LEVEL 27 MMOL/L (20-31); CHLORIDE LEVEL 109 MMOL/L (98-107); CHOLESTEROL LEVEL 159 MG/DL (<200); CHOLESTEROL RISK RATIO 5.42 (<5); CREATININE FOR GFR 1.11 MG/DL (0.70-1.30); GLOMERULAR FILTRATION RATE > 60.0 (>60); GLUCOSE, FASTING 93 MG/DL (60-100); HDL CHOLESTEROL 29.3 MG/DL (>40); LDL CHOLESTEROL 101.5 MG/DL (<100); NON-HDL-C 129.7 MG/DL; SODIUM LEVEL 145 MMOL/L (136-145); TOTAL PROTEIN 7.3 G/DL (5.7-8.2); TRIGLYCERIDES LEVEL 141 MG/DL (<150)
== END ==
LOC: M LAB REF 12:42
PROVIDERS: ATTEND Family Medicine Addiction Medicine
DX: E78.5 Hyperlipidemia, unspecified (principal)